=== PATIENT | male | born 1995 | race African-American/Black ===

== ENCOUNTER 2017-03-29 11:45 | Inpatient (IN) | payer SELFPAY ==
[2017-03-29] VITALS (14 sets, daily range): BP systolic 94–179; BP diastolic 54–106; PULSE 76–175; RESP 16–30; TEMP 98.4–99.5; O2SAT 96–100
[~2017-03-29] VITALS: Ht 185.4 cm; Wt 79.4 kg
--- NOTE | 2017-03-29 11:59 | PD ---
Physical Exam Time Seen by Provider: 11:57 Narrative 21 y/o male here with altered mental status, tremors for 2 days according to his mother. Vital signs reviewed. Seen at triage desk. Awaiting bed placement. Data Data Last Documented VS Vital Signs Date Time Temp Pulse Resp B/P Pulse Ox O2 Delivery O2 Flow Rate FiO2 03/29/17 11:47 98.4 114 18 154/89 100 MDM Medical Record Reviewed: Yes Supervised Visit with NAY: No Scripts No Active Prescriptions or Reported Meds Octavio Tapia Mar 29, 2017 11:59
[2017-03-29 12:51] LABS: AUTOMATED NEUTROPHIL # 6.4 TH/MM3 (1.8-7.7); BASOPHIL % 0.2 % (0.0-2.0); EOSINOPHIL # 0.1 TH/MM3 (0-0.4); EOSINOPHIL % 1.1 % (0.0-4.0); HEMATOCRIT 44.6 % (39.0-51.0); HEMO FLAGS DIFF FINAL; LYMPH % 23.2 % (9.0-44.0); LYMPHOCYTE # 2.2 TH/MM3 (1.0-4.8); MEAN CELL VOLUME 88.7 FL (80.0-100.0); MEAN CORPUSCULAR HEMOGLOBIN 30.4 PG (27.0-34.0); MEAN CORPUSCULAR HGB CONC 34.3 % (32.0-36.0); MONO % 6.9 % (0.0-8.0); NEUT % 68.6 % (16.0-70.0); PLATELET COUNT 239 TH/MM3 (150-450); RED BLOOD COUNT 5.03 MIL/MM3 (4.50-5.90); RED CELL DISTRIBUTION WIDTH 14.6 % (11.6-17.2); WHITE BLOOD COUNT 9.3 TH/MM3 (4.0-11.0)
[2017-03-29 13:15] LABS: AST (GOT) 18 U/L (15-37); BICARBONATE 26.2 MEQ/L (21.0-32.0); BLOOD UREA NITROGEN 15 MG/DL (7-18); GLOMERULAR FILTRATION RATE 122 ML/MIN (>89)
[2017-03-29] MEDS ORDERED: SODIUM CHLOR 0.9% 1000 ML INJ 1,000 ML IV SCH (13:22)
[2017-03-29] MEDS ORDERED: ZITHTAB PO (13:26)
--- NOTE | 2017-03-29 13:28 | PD ---
HPI Chief Complaint: Psychiatric Symptoms Time Seen by Provider: 13:24 Travel History International Travel<30 days: No Contact w/Intl Traveler<30days: No Traveled to known affect area: No History of Present Illness HPI Patient comes in with his mother complaining of altered mental status ongoing for approximately week. States that a week ago is a different ER if being treated for abdominal pain, headache, nausea, and vomiting was evaluated there having blood work and CAT scans done and sent home. Mother is uncertain what medication they were given but the patient has had similar reactions in the past after receiving Zofran as well as her if he received this or not. Mother states the patient was given a prescription for a Z-Mustapha for sinus infection. Patient was reevaluated in the same ER last night mother reports that they did not do anything and just sent him home. Reports patient is hallucinating and seeing things that aren't there, shaking, and not acting himself. Patient's only complaint is headache and frontal lobe without radiation and occasional dizziness. Denies any chest pain, shortness of breath, known fevers, abdominal pain, nausea, vomiting, diarrhea, or neck pain. PFSH Past Medical History Asthma: No Cancer: No Cardiovascular Problems: No Cerebrovascular Accident: No Diabetes: No Glaucoma: No Hepatitis: No Hiatal Hernia: No Hypertension: No Immune Disorder: No Respiratory: No Myocardial Infarction: No Thyroid Disease: No Past Surgical History Oral Surgery: Yes (DENTAL SX) Other Surgery: Yes Social History Alcohol Use: No Tobacco Use: Yes (BLACK AND MILDS) Substance Use: No Allergies-Medications (Allergen,Severity, Reaction): Coded Allergies: Morphine (Verified Allergy, Intermediate, Confusion, 03/29/17) Tramadol (Verified Allergy, Intermediate, Confusion, 03/29/17) Zofran (Verified Allergy, Mild, Twitching, 03/29/17) Reported Meds & Prescriptions Reported Meds & Active Scripts Active Reported Zithromax Z-Mustapha (Azithromycin) 250 Mg Dspk 250 Mg PO DIRECTED 500 MG (2 tabs) day 1, then 1 tab days 2-5. Review of Systems Except as stated in HPI: all other systems reviewed are Neg Physical Exam Narrative GENERAL: Well-developed, well nourished, in no acute distress, and non-ill appearing. SKIN: Focused skin assessment warm and dry. HEAD: Atraumatic. Normocephalic. EYES: Pupils equal and round. EOMI. No scleral icterus. No injection or drainage. ENT: No nasal bleeding or discharge. Mucous membranes pink and moist. NECK: Trachea midline. No JVD. Supple. No nuclear rigidity. Negative Kernig's and Brudzinski sign. CARDIOVASCULAR: Regular rate and rhythm. No murmur appreciated. RESPIRATORY: No accessory muscle use. No respiratory distress. Clear to auscultation. Breath sounds equal bilaterally. GASTROINTESTINAL: Abdomen soft, non-tender, nondistended, and no guarding. Hepatic and splenic margins not palpable. Normal bowel sounds 4. No pulsatile mass. MUSCULOSKELETAL: No obvious deformities. No clubbing. No cyanosis. No edema. Full range of motion. NEUROLOGICAL: Awake and alert. No obvious cranial nerve deficits. Motor grossly within normal limits. Normal speech. Occasional twitching of hands and eyelids. PSYCHIATRIC: Appropriate mood and affect; insight and judgment normal. Zones in and out. Data Data Last Documented VS Vital Signs Date Time Temp Pulse Resp B/P Pulse Ox O2 Delivery O2 Flow Rate FiO2 03/29/17 19:09 160 24 144/65 97 Room Air 03/29/17 11:47 98.4 Orders Electrocardiogram (03/29/17 12:01) Complete Blood Count With Diff (03/29/17 12:01) Comprehensive Metabolic Panel (03/29/17 12:01) Creatine Kinase (Cpk) (03/29/17 12:01) Drug Screen, Random Urine (03/29/17 12:01) Alcohol (Ethanol) (03/29/17 12:01) Ammonia (03/29/17 13:22) Thyroid Stimulating Hormone (03/29/17 13:22) Urinalysis - C+S If Indicated (03/29/17 13:22) Blood Glucose (03/29/17 13:22) Ecg Monitoring (03/29/17 13:22) Iv Access Insert/Monitor (03/29/17 13:22) Oximetry (03/29/17 13:22) Sodium Chloride 0.9% Flush (Ns Flush) (03/29/17 13:30) Sodium Chlor 0.9% 1000 Ml Inj (Ns 1000 M (03/29/17 13:22) CKMB (03/29/17 12:40) CKMB% (03/29/17 12:40) Lorazepam Inj (Ativan Inj) (03/29/17 16:15) Lorazepam Inj (Ativan Inj) (03/29/17 16:15) Diphenhydramine Inj (Benadryl Inj) (03/29/17 16:24) Haloperidol Inj (Haldol Inj) (03/29/17 16:25) Ob/Psych Drug Screen, Urine (03/29/17 16:35) Psych Screen (03/29/17 16:50) Physician Name Changes (03/29/17 ) Haloperidol Inj (Haldol Inj) (03/29/17 17:00) Diphenhydramine Inj (Benadryl Inj) (03/29/17 17:00) Lorazepam Inj (Ativan Inj) (03/29/17 17:00) Lorazepam Inj (Ativan Inj) (03/29/17 17:15) Lorazepam Inj (Ativan Inj) (03/29/17 18:00) Ct Brain W/O Iv Contrast(Rout) (03/29/17 ) Dexmedetomidine Inj (Precedex Inj) (03/29/17 18:30) Neurological Rass Scale Q30MX2,Q2HX4,Q4H (03/29/17 18:19) Restraints Non-Violent ZAFAR.Q3H (03/29/17 18:22) Ur Bath Salts (03/29/17 19:18) Ur Drug Screen W/Confirmation (03/29/17 19:18) Ur Heroin (03/29/17 19:18) Ur K2 Spice (03/29/17 19:18) Ur Methadone (03/29/17 19:18) Admit To Inpatient (03/29/17 ) Code Status (03/29/17 19:19) Vital Signs (Adult) ZAFAR.Q1H (03/29/17 19:19) Activity Bed Rest (03/29/17 19:19) Elevate Head Of Bed (03/29/17 19:19) Diet Regular Basic (03/30/17 Breakfast) Sodium Chlor 0.9% 1000 Ml Inj (Ns 1000 M (03/29/17 19:19) Sodium Chloride 0.9% Flush (Ns Flush) (03/29/17 19:30) Sodium Chloride 0.9% Flush (Ns Flush) (03/29/17 21:00) Acetaminophen (Tylenol) (03/29/17 19:30) Pantoprazole Inj (Protonix Inj) (03/30/17 09:00) Lorazepam Inj (Ativan Inj) (03/29/17 19:30) Albuterol Neb (Albuterol Neb) (03/29/17 19:30) Complete Blood Count With Diff (03/30/17 04:00) Comprehensive Metabolic Panel (03/30/17 04:00) Act Partial Throm Time (Ptt) (03/30/17 04:00) Prothrombin Time / Inr (Pt) (03/30/17 04:00) Magnesium (Mg) (03/30/17 04:00) Phosphorus (Po4) (03/30/17 04:00) Lactic Acid (03/30/17 04:00) Electrocardiogram (03/29/17 ) Resp Incentive Spirometry (03/29/17 ) Resp Oxygen Tony C Titrat 1-4 L (03/29/17 ) Technical Business Systems Analyst / Telemetry ZAFAR.Q8H (03/29/17 19:19) Scd Bilateral/Knee High ZAFAR.BID (03/29/17 19:19) ^ Initiate Protocol (03/29/17 19:19) Instruction (03/29/17 19:19) [facility] Nursing Information (03/29/17 19:30) Chlorhexidine 2% Cloth (Chlorhexidine 2% (03/30/17 04:00) Chlorhexidine 2% Cloth (Chlorhexidine 2% (03/29/17 19:30) Mrsa Pcr Surveillance (03/29/17 19:19) Docusate Sodium-Senna (Stephanie-Colace) (03/29/17 21:00) Magnesium Hydroxide Liq (Milk Of Magnesi (03/29/17 19:30) Sennosides (Senokot) (03/29/17 19:30) Bisacodyl Supp (Dulcolax Supp) (03/29/17 19:30) Lactulose Liq (Lactulose Liq) (03/29/17 19:30) Inpatient Certification (03/29/17 ) Labs Laboratory Tests Test 03/29/17 03/29/17 12:40 13:50 White Blood Count 9.3 TH/MM3 Red Blood Count 5.03 MIL/MM3 Hemoglobin 15.3 GM/DL Hematocrit 44.6 % Mean Corpuscular Volume 88.7 FL Mean Corpuscular Hemoglobin 30.4 PG Mean Corpuscular Hemoglobin 34.3 % Concent Red Cell Distribution Width 14.6 % Platelet Count 239 TH/MM3 Mean Platelet Volume 8.3 FL Neutrophils (%) (Auto) 68.6 % Lymphocytes (%) (Auto) 23.2 % Monocytes (%) (Auto) 6.9 % Eosinophils (%) (Auto) 1.1 % Basophils (%) (Auto) 0.2 % Neutrophils # (Auto) 6.4 TH/MM3 Lymphocytes # (Auto) 2.2 TH/MM3 Monocytes # (Auto) 0.6 TH/MM3 Eosinophils # (Auto) 0.1 TH/MM3 Basophils # (Auto) 0.0 TH/MM3 CBC Comment DIFF FINAL Differential Comment Sodium Level 137 MEQ/L Potassium Level 3.8 MEQ/L Chloride Level 102 MEQ/L Carbon Dioxide Level 26.2 MEQ/L Anion Gap 9 MEQ/L Blood Urea Nitrogen 15 MG/DL Creatinine 0.93 MG/DL Estimat Glomerular Filtration 122 ML/MIN Rate Random Glucose 94 MG/DL Calcium Level 9.8 MG/DL Total Bilirubin 1.1 MG/DL Aspartate Amino Transf 18 U/L (AST/SGOT) Alanine Aminotransferase 34 U/L (ALT/SGPT) Alkaline Phosphatase 55 U/L Total Creatine Kinase 396 U/L Creatine Kinase MB 2.2 NG/ML Creatine Kinase MB % 0.6 % Total Protein 8.3 GM/DL Albumin 5.0 GM/DL Ethyl Alcohol Level LESS THAN 3 MG/DL Urine Color YELLOW Urine Turbidity CLEAR Urine pH 6.0 Urine Specific [place] 1.039 Urine Protein 30 mg/dL Urine Glucose (UA) NEG mg/dL Urine Ketones 40 mg/dL Urine Occult Blood NEG Urine Nitrite NEG Urine Bilirubin NEG Urine Urobilinogen 2.0 MG/DL Urine Leukocyte Esterase NEG Urine RBC 1 /hpf Urine WBC 1 /hpf Urine Squamous Epithelial <1 /hpf Cells Urine Mucus MANY /lpf Microscopic Urinalysis Comment CATH-CULT NOT IND Ammonia 45 MCMOL/L Thyroid Stimulating Hormone 0.280 uIU/ML 3rd Gen [facility] Medical Decision Making Medical Screen Exam Complete: Yes Emergency Medical Condition: Yes Interpretation(s) EKG reviewed by Dr. Jacob shows sinus rhythm with a sinus arrhythmia with a ventricular rate of 82. No STEMI. Differential Diagnosis Encephalopathy, UTI, acute drug psychosis, electrolyte abnormality, thyroid disease, adverse reaction, other Narrative Course Patient seen and examined. IV was established. Patient was registered nurse cardiac telemetry. Patient was hydrated with IV fluids. Initial laboratory studies were ordered. We'll await laboratory results and reevaluate patient. The labs obtained and reviewed. Discussed patient with Dr. Jacob, who saw and evaluated the patient is concerned patient may be having mini seizures. Will Admit the patient for further evaluation. Discussed this with patient and family, who is agreeable for admission. 1615 patient having more symptoms of withdrawal and not so much seizure-like activity currently. Patient will be evaluated by psych will cancel the admission order. Patient was given Ativan, Haldol, and Benadryl. Patient continued to get more aggravated and have additional sedating medications needing to be ordered. Patient was then admitted then by Dr. Jacob. Please see her dictation for final diagnosis and disposition. Physician Communication Physician Communication [id number] Marin, who is agreeable to admit the patient. Jeancarlos Tomlinson Mar 29, 2017 13:28
[2017-03-29] MEDS ORDERED: SODIUM CHLORIDE 0.9% FLUSH 5 ML FLUSH IV FLUSH PRN (13:30)
[2017-03-29 13:37] LABS: ALKALINE PHOSPHATASE 55 U/L (45-117); ALT (GPT) 34 U/L (12-78); ANION GAP 9 MEQ/L (5-15); CHLORIDE 102 MEQ/L (98-107); CREATINE KINASE 396 U/L (39-308); POTASSIUM 3.8 MEQ/L (3.5-5.1); SODIUM (NA) 137 MEQ/L (136-145); TOTAL BILIRUBIN ADULT 1.1 MG/DL (0.2-1.0)
[2017-03-29 14:19] LABS: BLOOD, URINE NEG (NEG); GLUCOSE,URINE NEG (NEG); KETONE, URINE 40 mg/dL (NEG); MUCUS URINE MANY /lpf (OCC); NITRITE,URINE NEG (NEG); SQUAMOUS EPITHELIAL CELL URINE <1 /hpf (0-5); URINE COLOR YELLOW (YELLW/STRAW)
[2017-03-29 14:22] LABS: COMMENT (UR) CATH-CULT NOT IND; CULTURE IF INDICATED CATH CULTURE NOT IND
[2017-03-29 14:40] LABS: CKMB 2.2 NG/ML (0.5-3.6)
--- NOTE | 2017-03-29 16:08 | HHI.HP ---
HPI Service [facility] Hospitalists Primary Care Physician Dr. Cade Mccall Admission Diagnosis seizure-like activity, altered mental status Chief Complaint: AMS Travel History International Travel<30 Days: No Contact w/Intl Traveler <30 Da: No Traveled to Known Affected Are: No History of Present Illness Mr. Ball is a 21 y/o AAM without significant PMH. Pts mother is present at the bedside and provides the history. Pt was recently admitted to [facility] from -03/23/17 with nausea/vomiting and abdominal pain which had started just prior to going to the ED. At that time there were no concerning neurological symptoms. There were no reported fevers at that time. Pts mother reports that they checked his gallbladder but this was not found to be the issue. She states that the N/V and abd pain resolved but there was no specific diagnosis given. Pts mother reports that he was previously hospitalized 1 year ago for an appendectomy and at that time he was given Morphine, Tramadol and Zofran in the hospital and was sent home on Zofran and Tramadol and his mother reports that she felt had a reaction to Tramadol where he became confused with associated twitching that resolved with stopping the tramadol.. Pts mother reports that she noted during his most recent hospitalization that he had started having some twitching and agitation. After that discharge she noted that the symptoms seemed to be more pronounced and worsening. He has had twitching of the upper and lower extremities and confusion and hallucinating. She states that he has not been sleeping for the last 2 days. Pt went back to [facility] on 03/28/17 in the ED and was diagnosed with sinus infection and given a z pack. He took one dose of the Azithromycin this morning. His mother became concerned about the changes in his mentation, agitation and twitching and brought him to the ED at [facility] today. Pts mother states that the patient has been under a lot of stress lately. He does not have any history of psychiatric illness. No hx of seizure disorder. He has hx of marijuana use but no other illicit drug use as far as his mother is aware. During the examination the patient became increasingly agitated and uncooperative. He started hyperventilating and trying to get up off of the stretcher. Pt was given 2mg of Ativan in the ED but was still very agitated and seemed to be paranoid and hallucinating. He was very uncooperative with examination. Review of Systems ROS Limitations: Clinical Condition, Altered Mental Status, Uncooperative Past Family Social History Past Medical History None reported Past Surgical History Appendectomy Reported Medications Zithromax Z-Mustapha (Azithromycin) 250 Mg Dspk 250 Mg PO DIRECTED 500 MG (2 tabs) day 1, then 1 tab days 2-5. Allergies: Coded Allergies: Morphine (Verified Allergy, Intermediate, Confusion, 03/29/17) Tramadol (Verified Allergy, Intermediate, Confusion, 03/29/17) Zofran (Verified Allergy, Mild, Twitching, 03/29/17) Family History Noncontributory Social History No reported alcohol or tobacco use Pt with hx of marijuana use. Physical Exam Vital Signs Vital Signs Date Time Temp Pulse Resp B/P Pulse Ox O2 Delivery O2 Flow Rate FiO2 03/29/17 13:28 93 16 132/82 99 Room Air 03/29/17 11:47 98.4 114 18 154/89 100 Physical Exam GENERAL: This is a well-nourished, well-developed patient, in no apparent distress. SKIN: No rashes, ecchymoses or lesions. Cool and dry. HEAD: Atraumatic. Normocephalic. No temporal or scalp tenderness. EYES: Pupils equal round and reactive. Extraocular motions intact. No scleral icterus. No injection or drainage. ENT: Nose without bleeding, purulent drainage or septal hematoma. Throat without erythema, tonsillar hypertrophy or exudate. Uvula midline. Airway patent. NECK: Trachea midline. No JVD or lymphadenopathy. Supple, nontender, no meningeal signs. CARDIOVASCULAR: Regular rate and rhythm without murmurs, gallops, or rubs. RESPIRATORY: Clear to auscultation. Breath sounds equal bilaterally. No wheezes , rales, or rhonchi. GASTROINTESTINAL: Abdomen soft, non-tender, nondistended. No hepato-splenomegaly , or palpable masses. No guarding. MUSCULOSKELETAL: Extremities without clubbing, cyanosis, or edema. No joint tenderness, effusion, or edema noted. No calf tenderness. Negative Homans sign bilaterally. NEUROLOGICAL: Awake and alert. Cranial nerves II through XII intact. Motor and sensory grossly within normal limits. Five out of 5 muscle strength in all muscle groups. Normal speech. Laboratory Laboratory Tests Test 03/29/17 03/29/17 12:40 13:50 White Blood Count 9.3 Red Blood Count 5.03 Hemoglobin 15.3 Hematocrit 44.6 Mean Corpuscular Volume 88.7 Mean Corpuscular Hemoglobin 30.4 Mean Corpuscular Hemoglobin 34.3 Concent Red Cell Distribution Width 14.6 Platelet Count 239 Mean Platelet Volume 8.3 Neutrophils (%) (Auto) 68.6 Lymphocytes (%) (Auto) 23.2 Monocytes (%) (Auto) 6.9 Eosinophils (%) (Auto) 1.1 Basophils (%) (Auto) 0.2 Neutrophils # (Auto) 6.4 Lymphocytes # (Auto) 2.2 Monocytes # (Auto) 0.6 Eosinophils # (Auto) 0.1 Basophils # (Auto) 0.0 CBC Comment DIFF FINAL Differential Comment Sodium Level 137 Potassium Level 3.8 Chloride Level 102 Carbon Dioxide Level 26.2 Anion Gap 9 Blood Urea Nitrogen 15 Creatinine 0.93 Estimat Glomerular Filtration 122 Rate Random Glucose 94 Calcium Level 9.8 Total Bilirubin 1.1 Aspartate Amino Transf 18 (AST/SGOT) Alanine Aminotransferase 34 (ALT/SGPT) Alkaline Phosphatase 55 Total Creatine Kinase 396 Creatine Kinase MB 2.2 Creatine Kinase MB % 0.6 Total Protein 8.3 Albumin 5.0 Ethyl Alcohol Level LESS THAN 3 Urine Color YELLOW Urine Turbidity CLEAR Urine pH 6.0 Urine Specific [place] 1.039 Urine Protein 30 Urine Glucose (UA) NEG Urine Ketones 40 Urine Occult Blood NEG Urine Nitrite NEG Urine Bilirubin NEG Urine Urobilinogen 2.0 Urine Leukocyte Esterase NEG Urine RBC 1 Urine WBC 1 Urine Squamous Epithelial <1 Cells Urine Mucus MANY Microscopic Urinalysis Comment CATH-CULT NOT IND Ammonia 45 Thyroid Stimulating Hormone 0.280 3rd Gen Result Diagram: 03/29/17 1240 03/29/17 1240 Tangela Moreno Mar 29, 2017 16:08
[2017-03-29] MEDS ORDERED: LORazepam 2 MG/ML VIAL ONE (16:15)
[2017-03-29] MEDS: LORazepam 2 MG/ML VIAL IV PUSH ONE ×2 (16:15→17:25)
[2017-03-29] MEDS ORDERED: diphenhydrAMINE HCL 50 MG/ML VIAL ONE (16:24)
[2017-03-29] MEDS ORDERED: HALOPERIDOL LACTATE 5 MG/ML AMP ONE (16:25)
[2017-03-29] MEDS ORDERED: diphenhydrAMINE HCL 50 MG/ML VIAL IV PUSH ONE (17:00)
[2017-03-29] MEDS ORDERED: HALOPERIDOL LACTATE 5 MG/ML AMP IV PUSH ONE (17:00)
[2017-03-29] MEDS ORDERED: LORazepam 2 MG/ML VIAL IV PUSH ONE ×3 (17:00→18:00)
[2017-03-29] MEDS: DEXMEDETOMIDINE INJ 200 MCG in SODIUM CHLORIDE 0.9% INJ 50 ML IV SCH ×3 (18:39→22:26)
--- NOTE | 2017-03-29 19:21 | PD ---
HPI Chief Complaint: Psychiatric Symptoms Time Seen by Provider: 13:21 Travel History International Travel<30 days: No Contact w/Intl Traveler<30days: No Traveled to known affect area: No History of Present Illness HPI This is a 21-year-old male who presents to the emergency department with increasing altered mental status over the past week. His family reports that one week ago he was seen at [facility] with some headache nausea and vomiting and treated for sinus infection. Ever since then they feel like he's been not himself, acting bizarrely, intermittently agitated and combative and intermittently staring out into space. He has smoked marijuana in the past but they feel fairly confident that within the past week he's been with other people and they don't know that he used any drugs. The patient doesn't provide much history. PFSH Past Medical History Asthma: No Cancer: No Cardiovascular Problems: No Cerebrovascular Accident: No Diabetes: No Glaucoma: No Hepatitis: No Hiatal Hernia: No Hypertension: No Immune Disorder: No Respiratory: No Myocardial Infarction: No Thyroid Disease: No Tetanus Vaccination: > 5 Years Past Surgical History Appendectomy: Yes Gynecologic Surgery: Yes (cyst removed from right testicle 2010) Oral Surgery: Yes (DENTAL SX) Other Surgery: Yes Social History Alcohol Use: No Tobacco Use: No Substance Use: No Allergies-Medications (Allergen,Severity, Reaction): Coded Allergies: Morphine (Verified Allergy, Intermediate, Confusion, 03/29/17) Tramadol (Verified Allergy, Intermediate, Confusion, 03/29/17) Zofran (Verified Allergy, Mild, Twitching, 03/29/17) Reported Meds & Prescriptions Reported Meds & Active Scripts Active Reported Zithromax Z-Mustapha (Azithromycin) 250 Mg Dspk 250 Mg PO DIRECTED 500 MG (2 tabs) day 1, then 1 tab days 2-5. Review of Systems ROS Limitations: Altered Mental Status Physical Exam Narrative GENERAL:Well appearing, no acute distress SKIN: Focused skin assessment warm and dry. HEAD: Atraumatic. Normocephalic. EYES: Pupils equal and round. No injection or drainage. ENT: Moist mucous membranes NECK: Trachea midline. CARDIOVASCULAR: Tachycardic. No murmur appreciated. RESPIRATORY: Clear to auscultation. Breath sounds equal bilaterally. GASTROINTESTINAL: Abdomen soft, non-tender, nondistended. MUSCULOSKELETAL: No obvious deformities. NEUROLOGICAL: No obvious cranial nerve deficits. No dysarthria or aphasia. Moving all extremities. PSYCHIATRIC: Intermittently answers questions appropriately, then appears very paranoid and gets agitated, and appropriately smiling and grimacing Data Data Last Documented VS Vital Signs Date Time Temp Pulse Resp B/P Pulse Ox O2 Delivery O2 Flow Rate FiO2 03/29/17 13:28 93 16 132/82 99 Room Air 03/29/17 11:47 98.4 Orders Electrocardiogram (03/29/17 12:01) Complete Blood Count With Diff (03/29/17 12:01) Comprehensive Metabolic Panel (03/29/17 12:01) Creatine Kinase (Cpk) (03/29/17 12:01) Drug Screen, Random Urine (03/29/17 12:01) Alcohol (Ethanol) (03/29/17 12:01) Ammonia (03/29/17 13:22) Thyroid Stimulating Hormone (03/29/17 13:22) Urinalysis - C+S If Indicated (03/29/17 13:22) Blood Glucose (03/29/17 13:22) Ecg Monitoring (03/29/17 13:22) Iv Access Insert/Monitor (03/29/17 13:22) Oximetry (03/29/17 13:22) Sodium Chloride 0.9% Flush (Ns Flush) (03/29/17 13:30) Sodium Chlor 0.9% 1000 Ml Inj (Ns 1000 M (03/29/17 13:22) CKMB (03/29/17 12:40) CKMB% (03/29/17 12:40) Labs Laboratory Tests Test 03/29/17 03/29/17 12:40 13:50 White Blood Count 9.3 TH/MM3 Red Blood Count 5.03 MIL/MM3 Hemoglobin 15.3 GM/DL Hematocrit 44.6 % Mean Corpuscular Volume 88.7 FL Mean Corpuscular Hemoglobin 30.4 PG Mean Corpuscular Hemoglobin 34.3 % Concent Red Cell Distribution Width 14.6 % Platelet Count 239 TH/MM3 Mean Platelet Volume 8.3 FL Neutrophils (%) (Auto) 68.6 % Lymphocytes (%) (Auto) 23.2 % Monocytes (%) (Auto) 6.9 % Eosinophils (%) (Auto) 1.1 % Basophils (%) (Auto) 0.2 % Neutrophils # (Auto) 6.4 TH/MM3 Lymphocytes # (Auto) 2.2 TH/MM3 Monocytes # (Auto) 0.6 TH/MM3 Eosinophils # (Auto) 0.1 TH/MM3 Basophils # (Auto) 0.0 TH/MM3 CBC Comment DIFF FINAL Differential Comment Sodium Level 137 MEQ/L Potassium Level 3.8 MEQ/L Chloride Level 102 MEQ/L Carbon Dioxide Level 26.2 MEQ/L Anion Gap 9 MEQ/L Blood Urea Nitrogen 15 MG/DL Creatinine 0.93 MG/DL Estimat Glomerular Filtration 122 ML/MIN Rate Random Glucose 94 MG/DL Calcium Level 9.8 MG/DL Total Bilirubin 1.1 MG/DL Aspartate Amino Transf 18 U/L (AST/SGOT) Alanine Aminotransferase 34 U/L (ALT/SGPT) Alkaline Phosphatase 55 U/L Total Creatine Kinase 396 U/L Creatine Kinase MB 2.2 NG/ML Creatine Kinase MB % 0.6 % Total Protein 8.3 GM/DL Albumin 5.0 GM/DL Ethyl Alcohol Level LESS THAN 3 MG/DL Urine Color YELLOW Urine Turbidity CLEAR Urine pH 6.0 Urine Specific [place] 1.039 Urine Protein 30 mg/dL Urine Glucose (UA) NEG mg/dL Urine Ketones 40 mg/dL Urine Occult Blood NEG Urine Nitrite NEG Urine Bilirubin NEG Urine Urobilinogen 2.0 MG/DL Urine Leukocyte Esterase NEG Urine RBC 1 /hpf Urine WBC 1 /hpf Urine Squamous Epithelial <1 /hpf Cells Urine Mucus MANY /lpf Microscopic Urinalysis Comment CATH-CULT NOT IND Ammonia 45 MCMOL/L Thyroid Stimulating Hormone 0.280 uIU/ML 3rd Gen [facility] Medical Decision Making Medical Screen Exam Complete: Yes Emergency Medical Condition: Yes Interpretation(s) No leukocytosis Electrolytes are reassuring TSH is low Differential Diagnosis Seizure, substance intoxication, alcohol withdrawal, encephalitis, meningitis Narrative Course This is a 21-year-old male who presents with altered mental status. The patient initially was fairly calm and cooperative but has become increasingly agitated during his emergency department stay, becoming more tachycardic and trying to get out of bed area did he was placed on a monitor and an IV was established. When he became more agitated he was given a total of 5 mg of Ativan, Haldol and Benadryl. He continued to be agitated. Labs are reassuring. He was started on Precedex and will be admitted to the intensive care unit. My suspicion based on his exam is that he is intoxicated with synthetic cannabinoids. Certainly encephalitis continues to be on the differential although he has no signs of infection and organic psychiatric diseases on the differential. Critical Care Narrative Aggregate critical care time was 60 minutes. Time to perform other separately billable procedures was not included in the critical care time. My time did not include minutes spent treating any other patients simultaneously or on activities that did not directly contribute to the patient's treatment. The services I provided to this patient were to treat and/or prevent clinically significant deterioration that could result in: Disability, I provided critical care services requiring my management, as noted below: Chart data review, documentation time, medication orders and management, vital sign assessments/reviewing monitor data, ordering and reviewing lab tests, ordering and interpreting/reviewing x-rays and diagnostic studies, care of the patient and discussion of the patient with the admitting physicians. Physician Communication Physician Communication Discussed with Dr. Lomeli Diagnosis Primary Impression: Acute delirium Admitting Information Admitting Physician Requests: Admit Deysi Jacob MD Mar 29, 2017 19:21
[2017-03-29] MEDS ORDERED: SENNOSIDES 8.6 MG TAB PO PRN (19:30)
[2017-03-29] MEDS ORDERED: SODIUM CHLORIDE 0.9% FLUSH 10 ML FLUSH IV FLUSH PRN (19:30)
[2017-03-29] MEDS ORDERED: ACETAMINOPHEN 325 MG TAB PO PRN (19:30)
[2017-03-29] MEDS ORDERED: MAGNESIUM HYDROXIDE SUSP 30 ML CUP PO PRN (19:30)
[2017-03-29] MEDS ORDERED: RESP: ALBUTEROL 2.5 MG/3 ML NEB (PRN) INH (19:30)
[2017-03-29] MEDS ORDERED: BISACODYL 10 MG SUPP RECTAL PRN (19:30)
[2017-03-29] MEDS ORDERED: LORazepam 2 MG/ML VIAL IV PRN (19:30)
[2017-03-29] MEDS ORDERED: PROCHLORPERAZINE INJ 10 MG/2 ML VIAL IV PUSH PRN (19:30)
[2017-03-29] MEDS ORDERED: CHLORHEXIDINE GLUCONATE 2 % 1 PACK (2 CLOTHS) TOP PRN (19:30)
[2017-03-29] MEDS ORDERED: LACTULOSE SYRUP 20 GM/30 ML CUP PO PRN (19:30)
[2017-03-29] MEDS ORDERED: MISCELLANEOUS NURSING INFORMATION XX SCH (19:30)
[2017-03-29 19:52] LABS: AMPHETAMINE, URINE NEG (NEG); BARBITURATES, URINE NEG (NEG); COCAINE, URINE NEG (NEG)
--- NOTE | 2017-03-29 19:52 | PD.CONS ---
HPI Service Critical Care Medicine Consult Requested By Dr. Baldwin Reason for Consult Altered mental status Primary Care Physician No Primary Care Physician History of Present Illness This is a 21-year-old AA male. Date of admission 03/29/2017. Date of consultation 03/29/2017. Past medical history includes recent hospitalization at [facility] from 03/21/17-03/23/17 with nausea/vomiting and abdominal pain. At that time there were no concerning neurological symptoms. Negative gallbladder workup including ultrasound and HIDA scan. Symptoms have resolved and patient was sent home. During the hospital sedation the patient is currently more confused. Unknown what medications patient received at that facility. . Pts mother reports that she noted during his most recent hospitalization that he had started having some twitching and agitation. After that discharge she noted that the symptoms seemed to be more pronounced and worsening. He has had twitching of the upper and lower extremities and confusion and hallucinating. He has not slept in 2 days. He went back to [facility] on 03/28/17 was diagnosed with a sinus infection and given a azithromycin dosage.. He took one dose of the Azithromycin this morning Pts mother who is a RN states that the patient has been under a lot of stress lately. He has hx of marijuana use but no other illicit drug use as far as his mother is aware. During the examination the patient became increasingly agitated and uncooperative. He was given 5 mg Haldol, 5 mg Ativan and 50 mg of Benadryl became worsening mentation, agitation becoming increasing tachycardic. Precedex drip was initiated. Head CT and toxicology all pending at the present time. Patient denies any neck pain, denies headache. No obvious meningeal/ signs present time Review of Systems ROS Limitations: Altered Mental Status Past Family Social History Allergies: Coded Allergies: Morphine (Verified Allergy, Intermediate, Confusion, 03/29/17) Tramadol (Verified Allergy, Intermediate, Confusion, 03/29/17) Zofran (Verified Allergy, Mild, Twitching, 03/29/17) Past Medical History None Past Surgical History Appendectomy Dental surgery Cyst removed from right testes Reported Medications Azithromycin 250 mg by mouth daily 3 dosages Active Ordered Medications Reviewed in EMR Family History Mother's is RN. She has no medical problems. Social History Mother states patient occasionally smokes marijuana occasional tobacco use. Denies alcohol use. Physical Exam Vital Signs Vital Signs Date Time Temp Pulse Resp B/P Pulse Ox O2 Delivery O2 Flow Rate FiO2 03/29/17 19:35 26 137/78 98 Room Air 03/29/17 19:09 160 24 144/65 97 Room Air 03/29/17 17:00 127 24 120/96 98 Room Air 03/29/17 13:28 93 16 132/82 99 Room Air 03/29/17 11:47 98.4 114 18 154/89 100 Physical Exam GENERAL: 21-year-old AA male, resting in bed in leather restraints SKIN: Warm and wet. No rash. Multiple tattoos bilateral upper extremities. HEAD: Atraumatic. Normocephalic. EYES: Pupils equal and round about 2 mm bilaterally and reactive. No scleral icterus. No injection or drainage. ENT: No nasal bleeding or discharge. Mucous membranes pink and moist. NECK: Trachea midline. No JVD. CARDIOVASCULAR: Cardiac, RRR. S1, S2 no murmur. RESPIRATORY:. Clear to auscultation. Breath sounds equal bilaterally. GASTROINTESTINAL: Abdomen soft, non-tender, nondistended. Active bowel sounds appreciated MUSCULOSKELETAL: Extremities without noted peripheral edema. No obvious deformities. NEUROLOGICAL: Awake and alert to person only. No obvious cranial nerve deficits. Motor grossly within normal limits. Five out of 5 muscle strength in the arms and legs. Nonsensical speech. Laboratory Laboratory Tests Test 03/29/17 03/29/17 12:40 13:50 White Blood Count 9.3 Red Blood Count 5.03 Hemoglobin 15.3 Hematocrit 44.6 Mean Corpuscular Volume 88.7 Mean Corpuscular Hemoglobin 30.4 Mean Corpuscular Hemoglobin 34.3 Concent Red Cell Distribution Width 14.6 Platelet Count 239 Mean Platelet Volume 8.3 Neutrophils (%) (Auto) 68.6 Lymphocytes (%) (Auto) 23.2 Monocytes (%) (Auto) 6.9 Eosinophils (%) (Auto) 1.1 Basophils (%) (Auto) 0.2 Neutrophils # (Auto) 6.4 Lymphocytes # (Auto) 2.2 Monocytes # (Auto) 0.6 Eosinophils # (Auto) 0.1 Basophils # (Auto) 0.0 CBC Comment DIFF FINAL Differential Comment Sodium Level 137 Potassium Level 3.8 Chloride Level 102 Carbon Dioxide Level 26.2 Anion Gap 9 Blood Urea Nitrogen 15 Creatinine 0.93 Estimat Glomerular Filtration 122 Rate Random Glucose 94 Calcium Level 9.8 Total Bilirubin 1.1 Aspartate Amino Transf 18 (AST/SGOT) Alanine Aminotransferase 34 (ALT/SGPT) Alkaline Phosphatase 55 Total Creatine Kinase 396 Creatine Kinase MB 2.2 Creatine Kinase MB % 0.6 Total Protein 8.3 Albumin 5.0 Ethyl Alcohol Level LESS THAN 3 Urine Color YELLOW Urine Turbidity CLEAR Urine pH 6.0 Urine Specific [place] 1.039 Urine Protein 30 Urine Glucose (UA) NEG Urine Ketones 40 Urine Occult Blood NEG Urine Nitrite NEG Urine Bilirubin NEG Urine Urobilinogen 2.0 Urine Leukocyte Esterase NEG Urine RBC 1 Urine WBC 1 Urine Squamous Epithelial <1 Cells Urine Mucus MANY Microscopic Urinalysis Comment CATH-CULT NOT IND Ammonia 45 Thyroid Stimulating Hormone 0.280 3rd Gen Result Diagram: 03/29/17 1240 03/29/17 1240 Assessment and Plan Assessment and Plan Neuro/Psych: Acute delirium THC use Urine drug screen/urine K2/vas also consider all pending CT brain pending Received Benadryl, Haldol and Ativan in ED. Possible. Os reaction. Trial Precedex drip titrate to maintain RASS of 0 Limit sedatives Consider lumbar puncture if no improvement CV: Sinus tachycardia Secondary to agitation. Currently normal saline at 84 cc an hour. Resp: Nasal cannula to maintain saturations greater than or equal to 92% Incentive spirometry while awake Check ABG with acute delirium when able GI: Elevated ammonia level Patient recently hospitalized at [facility]. Self-reported negative gallbladder ultrasound/HIDA scan. Protonix for GI prophylaxis Bowel regimen initiated Initiate lactulose 30 mg by mouth twice a day. Recheck ammonia level in a.m. : Beavers catheter currently not indicated Endo: Low TSH Check free T3/T4. Sliding-scale insisted to maintain euglycemia Renal: Creatinine currently within normal limits Accurate I's and O's Monitor urine output. Recheck BMP in a.m. Heme: CBC within normal limits. Follow-up on coags ID: Sinusitis? Follow-up on CT brain. Blood cultures 2, sputum and urine. MSK: PT evaluate and treat FEN: Replace electrolytes as clinically indicated Access - Utilize peripheral IV. Central line if indicated Prophylaxis - GI - Protonix - DVT - SCDs/weight brain CT prior to pharmacological prophylaxis. Critical Care: The total critical care time was 35 minutes. Time to perform other separately billable procedures was not included in the critical care time. Code Status Full code Discussed Condition With Patient's mother Attila Broussard. Dr. Jacob/ED physician. Care plan discussed all questions answered. Sean Lomeli MD Mar 29, 2017 19:52
[2017-03-29] MEDS: LACTULOSE SYRUP 20 GM/30 ML CUP PO SCH (21:00)
[2017-03-29] MEDS: DOCUSATE SODIUM 50 MG/SENNA 8.6 MG TAB PO SCH (21:00)
[2017-03-29] MEDS: SODIUM CHLOR 0.9% 1000 ML INJ 1,000 ML IV SCH (21:30)
[2017-03-29] MEDS: SODIUM CHLORIDE 0.9% FLUSH 10 ML FLUSH IV FLUSH SCH (21:30)
--- NOTE | 2017-03-29 21:37 | RADRPT ---
EXAM DATE/TIME: 03/29/2017 21:08 [place] COMPARISON: No previous studies available for comparison. INDICATIONS : Altered mental status. RADIATION DOSE: 53.64 CTDIvol (mGy) MEDICAL HISTORY : Non-responsive. SURGICAL HISTORY : Non-responsive. ENCOUNTER: Initial ACUITY: 1 day PAIN SCALE: Non-responsive LOCATION: cranial TECHNIQUE: Multiple contiguous axial images were obtained of the head. Using automated exposure control and adj ustment of the mA and/or kV according to patient size, radiation dose was kept as low as reasonably a chievable to obtain optimal diagnostic quality images. DICOM format image data is available electro nically for review and comparison. FINDINGS: CEREBRUM: The ventricles are normal for age. No evidence of midline shift, mass lesion, hemorrhage or acute in farction. No extra-axial fluid collections are seen. POSTERIOR FOSSA: The cerebellum and brainstem are intact. The 4th ventricle is midline. The cerebellopontine angle i s unremarkable. EXTRACRANIAL: The visualized portion of the orbits is intact. SKULL: The calvaria is intact. No evidence of skull fracture. CONCLUSION: 1. No acute intracranial abnormalities. Mucosal thickening in the paranasal sinuses. Jose M Atkins MD on March 29, 2017 at 21:33 Board Certified Radiologist. This report was verified electronically.
[2017-03-29] MEDS ORDERED: MULTIVITAMIN INJ 10 ML, THIAMINE INJ 100 MG, FOLIC ACID INJ 1 MG in SODIUM CHLORID 0.9%... IV ONE (23:00)
[2017-03-29] MEDS: CHLORHEXIDINE GLUCONATE 2 % 1 PACK (2 CLOTHS) TOP SCH (23:37)
[2017-03-30] VITALS (24 sets, daily range): BP systolic 92–130; BP diastolic 52–83; PULSE 69–112; RESP 13–47; TEMP 98.6–98.9; O2SAT 96–100
[2017-03-30] MEDS: DEXMEDETOMIDINE INJ 200 MCG in SODIUM CHLORIDE 0.9% INJ 50 ML IV SCH (04:08)
[2017-03-30 04:19] LABS: AUTOMATED NEUTROPHIL # 7.4 TH/MM3 (1.8-7.7); BASOPHIL % 0.4 % (0.0-2.0); EOSINOPHIL # 0.2 TH/MM3 (0-0.4); EOSINOPHIL % 1.5 % (0.0-4.0); HEMO FLAGS DIFF FINAL; LYMPH % 19.6 % (9.0-44.0); MEAN CELL VOLUME 88.7 FL (80.0-100.0); MEAN CORPUSCULAR HEMOGLOBIN 30.4 PG (27.0-34.0); MEAN CORPUSCULAR HGB CONC 34.3 % (32.0-36.0); MONO % 7.3 % (0.0-8.0); NEUT % 71.2 % (16.0-70.0); PLATELET COUNT 197 TH/MM3 (150-450); RED BLOOD COUNT 4.51 MIL/MM3 (4.50-5.90); RED CELL DISTRIBUTION WIDTH 14.2 % (11.6-17.2); WHITE BLOOD COUNT 10.3 TH/MM3 (4.0-11.0)
[2017-03-30 04:29] LABS: APTT (PATIENT) 24.7 SEC (24.3-30.1); INTERNATIONAL NORMALIZED RATIO 1.1 RATIO; PROTHROMBIN TIME - PATIENT 12.7 SEC (9.8-11.6)
[2017-03-30 05:17] LABS: ALKALINE PHOSPHATASE 46 U/L (45-117); ALT (GPT) 28 U/L (12-78); AMYLASE 70 U/L (25-115); ANION GAP 9 MEQ/L (5-15); AST (GOT) 25 U/L (15-37); BLOOD UREA NITROGEN 16 MG/DL (7-18); CHLORIDE 108 MEQ/L (98-107); FREE T3 3.52 PG/ML (2.18-3.98); FREE T4 1.58 NG/DL (0.76-1.46); GLOMERULAR FILTRATION RATE 147 ML/MIN (>89); POTASSIUM 4.2 MEQ/L (3.5-5.1); SODIUM (NA) 142 MEQ/L (136-145); TOTAL BILIRUBIN ADULT 1.2 MG/DL (0.2-1.0)
[2017-03-30] MEDS: SODIUM CHLOR 0.9% 1000 ML INJ 1,000 ML IV SCH ×2 (07:14→19:09)
--- NOTE | 2017-03-30 08:22 | EKG ---
Date Performed: 03/29/2017 Time Performed: 22:33:35 PTAGE: 21 years EKG: Sinus rhythm POSSIBLE RIGHT VENTRICULAR CONDUCTION DELAY VOLTAGE CRITERIA FOR LVH ABNORMAL ECG PREVIOUS TRACING : 03/29/2017 12.25 DOCTOR: Alexander Enriquez Interpretating Date/Time 03/30/2017 08:21:00
--- NOTE | 2017-03-30 08:37 | EKG ---
Date Performed: 03/29/2017 Time Performed: 12:25:44 PTAGE: 21 years EKG: Sinus rhythm WITH SINUS ARRHYTHMIA POSSIBLE RIGHT VENTRICULAR CONDUCTION DELAY ST ELEVATION, PROBABLY EARLY REPOL ARIZATION BORDERLINE ECG NO PREVIOUS TRACING DOCTOR: Alexander Enriquez Interpretating Date/Time 03/30/2017 08:31:44
[2017-03-30] MEDS: SODIUM CHLORIDE 0.9% FLUSH 10 ML FLUSH IV FLUSH SCH ×2 (08:42→19:53)
[2017-03-30] MEDS: LACTULOSE SYRUP 20 GM/30 ML CUP PO SCH ×2 (08:42→19:52)
[2017-03-30] MEDS: DOCUSATE SODIUM 50 MG/SENNA 8.6 MG TAB PO SCH ×2 (08:42→19:52)
[2017-03-30] MEDS: PANTOPRAZOLE SODIUM 40 MG VIAL IV SCH (08:42)
[2017-03-30] MEDS: MULTIVITAMIN INJ 10 ML, THIAMINE INJ 100 MG, FOLIC ACID INJ 1 MG in SODIUM CHLORID 0.9%... IV SCH (09:32)
[2017-03-30 09:51] LABS: RAPID PLASMA REAGIN SCREEN NON-REACTIVE (NON-REACTVE)
--- NOTE | 2017-03-30 11:13 | HHI.CCPN ---
Subjective Remarks/Hospital Course This is a 21-year-old AA male. Date of admission 03/29/2017. Date of consultation 03/29/2017. Past medical history includes recent hospitalization at [facility] from 03/21/17-03/23/17 with nausea/vomiting and abdominal pain. At that time there were no concerning neurological symptoms. Negative gallbladder workup including ultrasound and HIDA scan. Symptoms have resolved and patient was sent home. During the hospital sedation the patient is currently more confused. Unknown what medications patient received at that facility. . Pts mother reports that she noted during his most recent hospitalization that he had started having some twitching and agitation. After that discharge she noted that the symptoms seemed to be more pronounced and worsening. He has had twitching of the upper and lower extremities and confusion and hallucinating. He has not slept in 2 days. He went back to [facility] on 03/28/17 was diagnosed with a sinus infection and given a azithromycin dosage.. He took one dose of the Azithromycin this morning Pts mother who is a RN states that the patient has been under a lot of stress lately. He has hx of marijuana use but no other illicit drug use as far as his mother is aware. During the examination the patient became increasingly agitated and uncooperative. He was given 5 mg Haldol, 5 mg Ativan and 50 mg of Benadryl became worsening mentation, agitation becoming increasing tachycardic. Precedex drip was initiated. Head CT and toxicology all pending at the present time. Patient denies any neck pain, denies headache. No obvious meningeal/ signs present time. Subjective: 03/30: Episodes of tachycardia continued, patient still has noted tremulous hand movements. The patient reports over the last few months, increasing headaches. Patient currently alert and oriented, tolerating a diet. Objective Vital Signs Date Time Temp Pulse Resp B/P Pulse Ox O2 Delivery O2 Flow Rate FiO2 03/30/17 10:00 112 36 97 03/30/17 09:00 112/71 03/30/17 04:00 98.8 03/29/17 20:50 Nasal Cannula 03/29/17 20:46 4 03/29/17 19:43 21 Intake and Output 03/29/17 03/29/17 03/29/17 07:59 15:59 23:59 Intake Total 105 ml Output Total 0 ml Balance 105 ml Result Diagram: 03/30/1740603/30/17406 Objective Remarks GENERAL: 21-year-old AA male, resting in bed in alert and oriented 3 conversant appropriately SKIN: Warm and wet. No rash. Multiple tattoos bilateral upper extremities. HEAD: Atraumatic. Normocephalic. EYES: Pupils equal and round about 2 mm bilaterally and reactive. No scleral icterus. No injection or drainage. ENT: No nasal bleeding or discharge. Mucous membranes pink and moist. NECK: Trachea midline. No JVD. CARDIOVASCULAR: Cardiac, RRR. S1, S2 no murmur. RESPIRATORY:. Clear to auscultation. Breath sounds equal bilaterally. GASTROINTESTINAL: Abdomen soft, non-tender, nondistended. Active bowel sounds appreciated MUSCULOSKELETAL: Extremities without noted peripheral edema. No obvious deformities. NEUROLOGICAL: Awake and alert to person only. No obvious cranial nerve deficits. Motor grossly within normal limits. 5/5 muscle strength in the arms and legs. Normal speech. Tremulous hand movements noted. A/P Assessment and Plan Neuro/Psych: Acute delirium THC use Tremors Urine drug screen/urine K2/vas also consider all pending CT brain -no acute abnormality Received Benadryl, Haldol and Ativan in ED 03/29. Possible. Os reaction. Discontinue Precedex drip Limit sedatives Consider lumbar puncture if no improvement Findings tremulous movementsconsult neurology appreciate recommendations Obtain MRI Obtain EEG CV: Persistent Sinus tachycardia Obtain random cortisol ACTH stimulation test Consider 24 Urine metanephrines after MRI- Concern for Pheochromocytoma Currently normal saline at 84 cc an hour. Resp: Nasal cannula to maintain saturations greater than or equal to 92% Incentive spirometry while awake GI: Elevated ammonia level Patient recently hospitalized at [facility]. Self-reported negative gallbladder ultrasound/HIDA scan. Protonix for GI prophylaxis Bowel regimen initiated Initiate lactulose 30 mg by mouth twice a day. 03/30 ammonia level 28 : Beavers catheter currently not indicated Endo: Low TSH Check free T3/T4- WNL Sliding-scale Insulin to maintain euglycemia Obtain Aldosterone level Renal: Creatinine currently within normal limits Accurate I's and O's Monitor urine output. Monitor BMP Heme: CBC within normal limits. Follow-up on coags ID: Sinusitis? Follow-up on CT brain. Blood cultures 2, sputum and urine- results pending MSK: PT evaluate and treat FEN: Replace electrolytes as clinically indicated Access - Utilize peripheral IV. Central line if indicated Prophylaxis - GI - Protonix - DVT - SCDs/weight brain CT prior to pharmacological prophylaxis. Critical Care: Level 3 Dispo: Discussed with patient's parents updated on the medical status. Patient's mentation currently improved but noted fine tremulous movements,and tachycardia. Will continue to monitor. Physician Rachael Maloney MD Mar 30, 2017 11:13
[2017-03-30] MEDS: CHLORHEXIDINE GLUCONATE 2 % 1 PACK (2 CLOTHS) TOP SCH (19:53)
[2017-03-30] MEDS ORDERED: COSYNTROPIN 0.25 MG VIAL IV PUSH ONE (20:00)
--- NOTE | 2017-03-30 22:02 | MG ---
cc: KALEB MENDOZA M.D. Lab No: Date: 03/30/2017 Age: Sex: M Race: An EEG was obtained on this 21-year-old patient with history of altered mental status and trembling. DESCRIPTION The patient is described as awake during the study. There is low amplitude beta activity diffusely. Some alpha rhythms are seen intermixed in the central and posterior head regions. There is awake and asleep. Photic stimulation showed some driving response bilaterally. Artifact is noted intermittently. Hyperventilation showed no change. INTERPRETATION Normal awake and asleep EEG. MD ELIANA Thornton/EDWIN /9:27 PM /9:55 PM
[2017-03-31] VITALS (13 sets, daily range): BP systolic 110–135; BP diastolic 61–75; PULSE 71–102; RESP 20–63; TEMP 97.4–99.1; O2SAT 95–100
[2017-03-31] MEDS: SODIUM CHLOR 0.9% 1000 ML INJ 1,000 ML IV SCH ×2 (04:51→22:00)
--- NOTE | 2017-03-31 07:40 | MB ---
cc: JEFERSON CARMONA MD DATE OF CONSULTATION 03/30/17 REASON FOR CONSULTATION "Possible seizure activity noted, fine tremulous hand movements." HISTORY OF PRESENT ILLNESS Mr. Fox is a 21-year-old -Irish male with past medical history with that includes recent hospitalization at [facility] because of abdominal pain, nausea, vomiting. The patient was reported by the mother had a reaction to tramadol and Zofran last year when he had an appendectomy done with associated twitching that resolved with stopping of the tramadol. This is per review of medical records and as per mother's she stated that he had similar twitching and agitation. He was noted to have had twitching of the upper and lower extremities, confusion and hallucinations. He was combative. No history of psychiatric illness, head injury, seizures, febrile seizures. His brother though has history of two seizures episodes. REVIEW OF SYSTEMS A 12-point review of systems is negative except for what is stated in the HPI. PAST MEDICAL HISTORY Noncontributory. PAST SURGICAL HISTORY Appendectomy. MEDICATIONS Zithromax. ALLERGIES MORPHINE, TRAMADOL, ZOFRAN. FAMILY HISTORY Noncontributory. SOCIAL HISTORY Denies alcohol or tobacco use. History of marijuana is positive. PHYSICAL EXAMINATION GENERAL: Awake, alert, good historian, not in acute distress HEENT: Atraumatic, normocephalic. Intact vision, intact hearing. NECK: Trachea in the midline. Supple. No signs of meningeal irritation. CARDIOVASCULAR: Regular rate and rhythm. RESPIRATORY: Clear to auscultation. No wheezes. GASTROINTESTINAL: Soft, nontender. MUSCULOSKELETAL: Extremities without clubbing, cyanosis or edema. NEUROLOGICAL: Awake, alert, oriented to time, person and place. No dysarthria. No dysphasia. Cranial nerves II-XII are grossly intact. Motor system examination 5/5, bilateral symmetrical upper and lower extremities. Mild subtle fine tremor in both hands. No abnormal tone. Reflexes 2+ bilateral symmetrical. Plantars are bilaterally downgoing. Sensation is intact bilateral symmetrical. Cerebellar signs are normal. No ataxia. DIAGNOSTIC STUDIES LABORATORY DATA WBC 10.3, hemoglobin 13.7, sodium 142, potassium 4.2, chloride 108, anion gap 9, BUN 16, creatinine 0.79, lactic acid 0.7, magnesium 2, total bilirubin 1.2. AST, ALT are normal. Ammonia 37. T4 is elevated at 1.58. TSH is normal. UDS is positive for cannabinoids. DIAGNOSTIC IMAGING - Head CT scan without contrast revealed no acute intracranial abnormality. DIAGNOSTIC IMPRESSION 1. Encephalopathy. Possibly related to metabolic; less likely seizures or infectious etiology. Neurologic examination is nonfocal. No clinical signs of meningeal irritation with normal white blood cells. 2. Hyperammonemia PLAN 1. Neuro checks q. one hourly. 2. EEG. 3. Continue supportive medical therapy. 4. DVT prophylaxis. 5. MRI brain. Thank you for the opportunity to participate in the care of your patient. Jeferson Carmona MD RGO/EO /4:03 PM /7:29 AM [email or web address]
[2017-03-31] MEDS: DOCUSATE SODIUM 50 MG/SENNA 8.6 MG TAB PO SCH ×2 (09:00→22:01)
[2017-03-31] MEDS: LACTULOSE SYRUP 20 GM/30 ML CUP PO SCH ×2 (09:00→22:00)
[2017-03-31] MEDS: PANTOPRAZOLE SODIUM 40 MG VIAL IV SCH (09:18)
[2017-03-31] MEDS: SODIUM CHLORIDE 0.9% FLUSH 10 ML FLUSH IV FLUSH SCH ×2 (09:18→22:00)
[2017-03-31] MEDS: MULTIVITAMIN INJ 10 ML, THIAMINE INJ 100 MG, FOLIC ACID INJ 1 MG in SODIUM CHLORID 0.9%... IV SCH (09:18)
--- NOTE | 2017-03-31 11:53 | HHI.CCPN ---
Subjective Remarks/Hospital Course This is a 21-year-old AA male. Date of admission 03/29/2017. Date of consultation 03/29/2017. Past medical history includes recent hospitalization at [facility] from 03/21/17-03/23/17 with nausea/vomiting and abdominal pain. At that time there were no concerning neurological symptoms. Negative gallbladder workup including ultrasound and HIDA scan. Symptoms have resolved and patient was sent home. During the hospital sedation the patient is currently more confused. Unknown what medications patient received at that facility. . Pts mother reports that she noted during his most recent hospitalization that he had started having some twitching and agitation. After that discharge she noted that the symptoms seemed to be more pronounced and worsening. He has had twitching of the upper and lower extremities and confusion and hallucinating. He has not slept in 2 days. He went back to [facility] on 03/28/17 was diagnosed with a sinus infection and given a azithromycin dosage.. He took one dose of the Azithromycin this morning Pts mother who is a RN states that the patient has been under a lot of stress lately. He has hx of marijuana use but no other illicit drug use as far as his mother is aware. During the examination the patient became increasingly agitated and uncooperative. He was given 5 mg Haldol, 5 mg Ativan and 50 mg of Benadryl became worsening mentation, agitation becoming increasing tachycardic. Precedex drip was initiated. Head CT and toxicology all pending at the present time. Patient denies any neck pain, denies headache. No obvious meningeal/ signs present time. 03/30: Episodes of tachycardia continued, patient still has noted tremulous hand movements. The patient reports over the last few months, increasing headaches. Patient currently alert and oriented, tolerating a diet. Subjective: 03/31: Currently afebrile. Mentation much improved. Much less tremulous. No longer tachycardic. MRI brain pending still Objective Vital Signs Date Time Temp Pulse Resp B/P Pulse Ox O2 Delivery O2 Flow Rate FiO2 03/31/17 10:22 98 03/31/17 10:00 87 03/31/17 08:00 98.2 63 110/66 03/30/17 19:28 21 03/29/17 20:50 Nasal Cannula 03/29/17 20:46 4 Intake and Output 03/30/17 03/30/17 03/30/17 07:59 15:59 23:59 Intake Total 1472 ml 1102 ml Output Total 600 ml 600 ml Balance 872 ml 502 ml Result Diagram: 03/30/17 0407 03/30/17 0407 Imaging Last Impressions Head CT 03/29/17 0000 Signed Impressions: Service Date/Time: Wednesday, March 29, 2017 21:08 - CONCLUSION: 1. No acute intracranial abnormalities. Mucosal thickening in the paranasal sinuses. Jose M Atkins MD Objective Remarks GENERAL: 21-year-old AA male, resting in bed in alert and oriented 3 conversant appropriately SKIN: Warm and wet. No rash. Multiple tattoos bilateral upper extremities. HEAD: Atraumatic. Normocephalic. EYES: Pupils equal and round about 2 mm bilaterally and reactive. No scleral icterus. No injection or drainage. ENT: No nasal bleeding or discharge. Mucous membranes pink and moist. NECK: Trachea midline. No JVD. CARDIOVASCULAR: RRR S1, S2 no murmur. RESPIRATORY:. Clear to auscultation. Breath sounds equal bilaterally. GASTROINTESTINAL: Abdomen soft, non-tender, nondistended. Active bowel sounds appreciated MUSCULOSKELETAL: Extremities without noted peripheral edema. No obvious deformities. NEUROLOGICAL: Awake and alert to person place and time. No obvious cranial nerve deficits. Motor grossly within normal limits. 5/5 muscle strength in the arms and legs. Normal speech. Much less Tremulous hand movements noted. A/P Assessment and Plan Neuro/Psych: Acute delirium THC use Tremors Urine drug screen/urine revealed THC only CT brain -no acute abnormality Received Benadryl, Haldol and Ativan in ED 03/29. Possible. Paradoxical reaction. Findings tremulous movementsconsult neurology appreciate recommendations Obtain MRI brain currently pending Obtain EEG 03/30 normal CV: Normal sinus rhythm Currently normal saline at 84 cc an hour. Resp: Nasal cannula to maintain saturations greater than or equal to 92% Incentive spirometry while awake GI: Elevated ammonia level Patient recently hospitalized at [facility]. Self-reported negative gallbladder ultrasound/HIDA scan. Protonix for GI prophylaxis Bowel regimen initiated Initiate lactulose 30 mg by mouth twice a day. 03/30 ammonia level 37 : Beavers catheter currently not indicated Endo: Low TSH Check free T3/T4- WNL Sliding-scale Insulin to maintain euglycemia Obtain Aldosterone level ACTH stimulation test 24 Urine metanephrines after MRI-test written for by farmworker [employer] for Pheochromocytoma Renal: Creatinine currently within normal limits Accurate I's and O's Monitor urine output. Monitor BMP Heme: CBC within normal limits. Follow-up on coags ID: Sinusitis? Follow-up on CT brain. Blood cultures 2, sputum and urine- results pending MSK: PT evaluate and treat FEN: Replace electrolytes as clinically indicated Access - Utilize peripheral IV. Central line if indicated Prophylaxis - GI - Protonix - DVT - SCDs/weight brain CT prior to pharmacological prophylaxis. Critical Care: Level 2 Assign care to hospitalist in a.. 04/01. Sean Lomeli MD Mar 31, 2017 11:53
[2017-04-01] VITALS (7 sets, daily range): BP systolic 110–140; BP diastolic 56–74; PULSE 58–76; RESP 16–20; TEMP 97.4–98.3; O2SAT 96–100
[2017-04-01] MEDS: CHLORHEXIDINE GLUCONATE 2 % 1 PACK (2 CLOTHS) TOP SCH (03:24)
[2017-04-01] MEDS: SODIUM CHLOR 0.9% 1000 ML INJ 1,000 ML IV SCH (06:55)
[2017-04-01 08:46] LABS: AUTOMATED NEUTROPHIL # 3.7 TH/MM3 (1.8-7.7); BASOPHIL # 0.1 TH/MM3 (0-0.2); BASOPHIL % 0.7 % (0.0-2.0); EOSINOPHIL # 0.4 TH/MM3 (0-0.4); EOSINOPHIL % 5.2 % (0.0-4.0); HEMATOCRIT 42.8 % (39.0-51.0); HEMO FLAGS DIFF FINAL; LYMPH % 35.3 % (9.0-44.0); LYMPHOCYTE # 2.6 TH/MM3 (1.0-4.8); MEAN CELL VOLUME 89.5 FL (80.0-100.0); MEAN CORPUSCULAR HEMOGLOBIN 29.8 PG (27.0-34.0); MEAN CORPUSCULAR HGB CONC 33.3 % (32.0-36.0); MONO % 8.3 % (0.0-8.0); NEUT % 50.5 % (16.0-70.0); PLATELET COUNT 246 TH/MM3 (150-450); RED BLOOD COUNT 4.78 MIL/MM3 (4.50-5.90); RED CELL DISTRIBUTION WIDTH 14.2 % (11.6-17.2); WHITE BLOOD COUNT 7.3 TH/MM3 (4.0-11.0)
[2017-04-01 09:16] LABS: ANION GAP 3 MEQ/L (5-15); AST (GOT) 25 U/L (15-37); BLOOD UREA NITROGEN 11 MG/DL (7-18); CHLORIDE 103 MEQ/L (98-107); GLOMERULAR FILTRATION RATE 134 ML/MIN (>89); POTASSIUM 3.7 MEQ/L (3.5-5.1); SODIUM (NA) 136 MEQ/L (136-145)
[2017-04-01 09:17] LABS: ALT (GPT) 31 U/L (12-78)
[2017-04-01 09:19] LABS: ALKALINE PHOSPHATASE 50 U/L (45-117); TOTAL BILIRUBIN ADULT 0.8 MG/DL (0.2-1.0)
[2017-04-01] MEDS: MULTIVITAMIN INJ 10 ML, THIAMINE INJ 100 MG, FOLIC ACID INJ 1 MG in SODIUM CHLORID 0.9%... IV SCH (09:32)
[2017-04-01] MEDS: DOCUSATE SODIUM 50 MG/SENNA 8.6 MG TAB PO SCH (09:32)
[2017-04-01] MEDS: LACTULOSE SYRUP 20 GM/30 ML CUP PO SCH (09:33)
[2017-04-01] MEDS: PANTOPRAZOLE SODIUM 40 MG VIAL IV SCH (09:33)
[2017-04-01] MEDS: SODIUM CHLORIDE 0.9% FLUSH 10 ML FLUSH IV FLUSH SCH (09:43)
--- NOTE | 2017-04-01 10:34 | RADRPT ---
EXAM DATE/TIME: 04/01/2017 08:45 [facility] COMPARISON: CT BRAIN W/O CONTRAST, March 29, 2017, 21:08. CT BRAIN W/O CONTRAST, March 05, 2014, 11:42. INDICATIONS : Altered mental status. Seizures. MEDICAL HISTORY : None. SURGICAL HISTORY : Appendectomy. Cyst removed from testicle. ENCOUNTER: Subsequent ACUITY: 2 day PAIN SCORE: 0/10 LOCATION: head. TECHNIQUE: Multiplanar, multisequence MRI of the brain was performed without contrast. FINDINGS: CEREBRUM: The ventricles are normal for age. No evidence of midline shift, mass lesion, hemorrhage or acute in farction. Hippocampal complexes are symmetric and normal in appearance. No extraaxial fluid collectio ns are seen. A 6.6 mm cyst is identified posteriorly within the pituitary gland. The pituitary gland and suprasellar cistern are otherwise normal in configuration. No solid enhancing lesions were seen. WHITE MATTER: No significant signal abnormalities are seen in the white matter. POSTERIOR FOSSA: The cerebellum and brainstem are intact. The 4th ventricle is midline. The cerebellopontine angle is unremarkable. The cerebellar tonsils are normal in position. DIFFUSION IMAGING: No focal areas of restricted diffusion are seen. No evidence of acute infarction. EXTRACRANIAL: The visualized portions of the orbits and paranasal sinuses are unremarkable. CONCLUSION: 1. 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 Normal appearing brain without evidence of mesial temporal sclerosis, mass or developmental abnorm alities. Florentino Askew MD on April 01, 2017 at 9:56 Board Certified Radiologist. This report was verified electronically.
--- NOTE | 2017-04-01 12:40 | HHI.PR ---
Objective Vitals Vital Signs Date Time Temp Pulse Resp B/P Pulse Ox O2 Delivery O2 Flow Rate FiO2 04/01/17 12:14 98.3 76 20 140/70 99 04/01/17 08:24 98.3 61 20 110/59 98 04/01/17 05:20 99 04/01/17 04:38 97.4 58 16 114/56 96 04/01/17 01:38 98.1 67 16 121/59 99 03/31/17 20:00 97.4 82 20 115/61 100 03/31/17 18:42 98.4 86 20 117/75 100 03/31/17 18:00 84 03/31/17 16:00 98.5 89 135/68 97 03/31/17 16:00 95 03/31/17 16:00 89 03/31/17 14:00 95 03/31/17 03/31/17 04/01/17 15:00 23:00 07:00 Intake Total 1400 ml Output Total 1200 ml Balance 200 ml Intake Oral 530 ml IV Total 870 ml Output Urine Total 1200 ml # Bowel Movements 0 Result Diagram: 04/01/17 0828 04/01/17 0802 Darwin Marin MD Apr 01, 2017 12:40
[2017-04-01 14:30] LABS: FREE T4 1.59 NG/DL (0.76-1.46)
--- NOTE | 2017-04-01 22:06 | HHI.PR ---
Subjective Remarks pt oriented. ambulating no tremors. Objective Vitals pleasant and cooperative heart reg lung cta abd /snt ext no edema Vital Signs Date Time Temp Pulse Resp B/P Pulse Ox O2 Delivery O2 Flow Rate FiO2 04/01/17 16:31 98.2 65 20 123/70 100 04/01/17 12:14 98.3 76 20 140/70 99 04/01/17 08:24 98.3 61 20 110/59 98 04/01/17 05:20 99 04/01/17 04:38 97.4 58 16 114/56 96 04/01/17 01:38 98.1 67 16 121/59 99 03/31/17 03/31/17 04/01/17 15:00 23:00 07:00 Intake Total 1400 ml Output Total 1200 ml Balance 200 ml Intake Oral 530 ml IV Total 870 ml Output Urine Total 1200 ml # Bowel Movements 0 Result Diagram: 04/01/17 0828 04/01/17 0802 A/P Problem List: (1) Acute delirium Status: Acute Plan: Pt presented with acute delirium and psychosis. It is unclear the etiology of his sx's. He was having alot of tachycardia and tremor now he has stablized and seems back to nml unclear if he had a drug reaction from recent hospitalization He has thc in system and synthetic drugs being r/o metabolic wup in process. will f/u all pending labs ordered by ICU. pt will have family bring bottles of recently prescribed meds. MRI brain pending Darwin Marin MD Apr 01, 2017 22:06
[2017-04-02] VITALS: BP 132/68; PULSE 73; RESP 18; TEMP 98.6; O2SAT 100
[2017-04-02 04:20] VITALS: BP 123/57; PULSE 57; RESP 18; TEMP 97.8; O2SAT 100
--- NOTE | 2017-04-02 10:13 | HHI.PR ---
Subjective Remarks Pt ambulating. had bm no tremor. oriented and eager for d/c home. Objective Vitals nad no goiter neck supple heart reg lung cta abd s/nt ext no edema no tremor Vital Signs Date Time Temp Pulse Resp B/P Pulse Ox O2 Delivery O2 Flow Rate FiO2 04/02/17 04:20 97.8 57 18 123/57 100 04/02/17 00:00 98.6 73 18 132/68 100 04/01/17 20:00 98.0 74 20 118/74 100 04/01/17 16:31 98.2 65 20 123/70 100 04/01/17 12:14 98.3 76 20 140/70 99 04/01/17 04/01/17 04/02/17 15:00 23:00 07:00 Intake Total 480 ml Balance 480 ml Intake Oral 480 ml # Voids 5 # Bowel Movements 3 Result Diagram: 04/01/1782704/01/17 0802 A/P Problem List: (1) Acute delirium Status: Acute Plan: Pt presented with acute delirium and psychosis. It is unclear the etiology of his sx's. He was having alot of tachycardia and tremor now he has stablized and seems back to nml unclear if he had a drug reaction from recent hospitalization He has thc in system and synthetic drugs being r/o metabolic wup in process. will f/u all pending labs ordered by ICU. pt will have family bring bottles of recently prescribed meds. MRI brain ..radiologist notes benign appearing 6.6mm pituitary cyst discussed with pt and Mom. He feels back to nml and would like to go home. He can f/u with neuro and his new assigned pcp pending test include the tox screen and adrenal studies. I would probably recheck the TFT's also Darwin Marin MD Apr 02, 2017 10:13
--- NOTE | 2017-04-02 10:15 | HHI.DCPOC ---
Discharge Care Plan Diagnosis: (1) Acute delirium Goals to Promote Your Health * To prevent worsening of your condition and complications * To maintain your health at the optimal level Directions to Meet Your Goals Take your medications as prescribed Follow your dietary instruction Follow activity as directed Keep your appointments as scheduled Take your immunizations and boosters as scheduled If your symptoms worsen call your PCP, if no PCP go to Urgent Care Center or Emergency Room Smoking is Dangerous to Your Health. Avoid second hand smoke Call the 24-hour hour crisis hotline for domestic abuse at Darwin Marin MD Apr 02, 2017 10:15
[2017-04-02 12:46] LABS: BATH SALTS (MDPV) UR NEG (NEG); HEROIN (6-ACETYLMORPHINE) UR NEG (NEG); K2 SPICE UR NEG (NEG)
[2017-04-02 12:47] LABS: METHADONE UR NEG (NEG)
--- NOTE | 2017-04-03 12:58 | HHI.DS ---
Discharge Summary Admission Date Mar 29, 2017 at 19:20 Discharge Date: Apr 02, 2017 Admitting Diagnosis seizure-like activity, altered mental status (1) Acute delirium Diagnosis: Principal Brief History Mr. Ball is a 21 y/o AAM without significant PMH. Pts mother is present at the bedside and provides the history. Pt was recently admitted to [facility] from -03/23/17 with nausea/vomiting and abdominal pain which had started just prior to going to the ED. At that time there were no concerning neurological symptoms. There were no reported fevers at that time. Pts mother reports that they checked his gallbladder but this was not found to be the issue. She states that the N/V and abd pain resolved but there was no specific diagnosis given. Pts mother reports that he was previously hospitalized 1 year ago for an appendectomy and at that time he was given Morphine, Tramadol and Zofran in the hospital and was sent home on Zofran and Tramadol and his mother reports that she felt had a reaction to Tramadol where he became confused with associated twitching that resolved with stopping the tramadol.. Pts mother reports that she noted during his most recent hospitalization that he had started having some twitching and agitation. After that discharge she noted that the symptoms seemed to be more pronounced and worsening. He has had twitching of the upper and lower extremities and confusion and hallucinating. She states that he has not been sleeping for the last 2 days. Pt went back to [facility] on 03/28/17 in the ED and was diagnosed with sinus infection and given a z pack. He took one dose of the Azithromycin this morning. His mother became concerned about the changes in his mentation, agitation and twitching and brought him to the ED at [facility] today. Pts mother states that the patient has been under a lot of stress lately. He does not have any history of psychiatric illness. No hx of seizure disorder. He has hx of marijuana use but no other illicit drug use as far as his mother is aware. During the examination the patient became increasingly agitated and uncooperative. He started hyperventilating and trying to get up off of the stretcher. Pt was given 2mg of Ativan in the ED but was still very agitated and seemed to be paranoid and hallucinating. He was very uncooperative with examination. CBC/BMP: 04/01/17 0828 04/01/17 0802 Significant Findings Laboratory Tests Test 04/01/17 04/01/17 08:02 08:28 Anion Gap 3 MEQ/L (5-15) Free Thyroxine 1.59 NG/DL (0.76-1.46) Monocytes (%) (Auto) 8.3 % (0.0-8.0) Eosinophils (%) (Auto) 5.2 % (0.0-4.0) Ammonia 36 MCMOL/L (11-32) Hospital Course (1) Acute delirium Pt presented with acute delirium and psychosis. It is unclear the etiology of his sx's. He was having alot of tachycardia and tremor He was unstable and placed initially in ICU and on a gtt of Precedex to calm him down. He was seen by neurology who felt he had a metabolic encephalopathy. EEG was neg for sz. No recommendation for LP and pt really never appeared infectious. Now he has stabilized and seems back to nml unclear if he had a drug reaction from recent hospitalization He has thc in system and synthetic drugs being r/o but unlikely. metabolic wup in process. will f/u all pending labs ordered by ICU. MRI brain ..radiologist notes benign appearing 6.6mm pituitary cyst discussed with pt and Mom. He feels back to nml and would like to go home. He can f/u with neuro and his new assigned pcp pending test include the tox screen and adrenal studies including serum catecholamines which are likely to be nml I would probably recheck the TFT's also upon f/u as the free t4 was elevated with low tsh initially that returned to nml. No goiter on exam. Pt Condition on Discharge: Stable Discharge Disposition: Discharge Home Discharge Instructions DIET: Follow Instructions for: As Tolerated, No Restrictions Activities you can perform: Regular-No Restrictions Follow up Referrals: Neurology - 10 Days with Robe Carmona MD PCP Follow-up - 10 Days with Cade Mccall Discontinued Medications: Azithromycin (Zithromax Z-Mustapha) 250 Mg Dspk 250 MG PO DIRECTED 500 MG (2 tabs) day 1, then 1 tab days 2-5. Infection #1 Ref 0 DSPK Darwin Marin MD Apr 03, 2017 12:58
== END 2017-04-02 11:22 | disposition home or self-care (01) | DRG 72 ==
LOC: NEPE 11:45 → UNDOADMOB 15:46 → NEDA 15:46 → HIME 21:25 → N05B 03-31 18:08 → N05A 03-31 18:36
PROVIDERS: ADMIT Internal Medicine Critical Care Medicine; ATTEND Internal Medicine Critical Care Medicine
DX: G93.41 Metabolic encephalopathy (principal); E23.6 Other disorders of pituitary gland; F12.90 Cannabis use, unspecified, uncomplicated; Z72.0 Tobacco use
CPT/HCPCS: 70450; 70551; 80053; 80307; 80358; 81001; 82088; 82140; 82150; 82533; 82550; 82552; 83605; 83690; 83735; 83835; 84100; 84439; 84443; 84481; 85025; 85610; 85652; 85730; 86140; 86592; 87641; 93005; 95819; C9113; G0480; J0834; J1200; J1630; J2060; J3411; J7030; J7040

== ENCOUNTER 2017-07-19 09:59 | Emergency (ER) | payer OTHER ==
[~2017-07-19] VITALS: Ht 185.4 cm; Wt 80.0 kg
[2017-07-19 10:01] VITALS: BP 139/67; PULSE 56; RESP 16; TEMP 98.6; O2SAT 99
[2017-07-19] MEDS ORDERED: SODIUM CHLOR 0.9% 1000 ML INJ 1,000 ML IV SCH (10:24)
--- NOTE | 2017-07-19 10:28 | PD ---
HPI Chief Complaint: GI Complaint Time Seen by Provider: 10:10 Travel History International Travel<30 days: No Contact w/Intl Traveler<30days: No Traveled to known affect area: No History of Present Illness HPI Said 21-year-old man who presents to the emergency department complaining of abdominal pain. States that 2 days of left-sided lower abdominal pain associated with nausea. States he is worried it may be his gallbladder disease admitted to the hospital before for thyroid problems was found to have gallbladder inflammation. This was at [facility]. He states he's had his appendix out. States he gets intermittent belly pains like this from time to time and is becoming more frequently. Said nausea but no vomiting. He is not really eating much. No change in his bowel movements. States he doesn't urinate as much but denies any other urinary symptoms. History Past Medical History Narrative Medical History of appendectomy Social History Alcohol Use: No Tobacco Use: Yes Allergies-Medications (Allergen,Severity, Reaction): Coded Allergies: morphine (Unverified Allergy, Intermediate, Confusion, 07/19/17) tramadol (Unverified Allergy, Intermediate, Confusion, 07/19/17) ondansetron (Unverified Allergy, Mild, Twitching, 07/19/17) Reported Meds & Prescriptions Reported Meds & Active Scripts Active No Active Prescriptions or Reported Medications Review of Systems Except as stated in HPI: all other systems reviewed are Neg Physical Exam Narrative GENERAL: Young thin 21-year-old man, no acute distress. SKIN: Focused skin assessment warm/dry. HEAD: Atraumatic. Normocephalic. NECK: Trachea midline. No JVD. CARDIOVASCULAR: Regular rate and rhythm. No murmur appreciated. RESPIRATORY: No accessory muscle use. Clear to auscultation. Breath sounds equal bilaterally. GASTROINTESTINAL: Abdomen soft, non-tender, nondistended. Hepatic and splenic margins not palpable. MUSCULOSKELETAL: No obvious deformities. No clubbing. No cyanosis. No edema. NEUROLOGICAL: Awake and alert. No obvious cranial nerve deficits. Motor grossly within normal limits. Normal speech. PSYCHIATRIC: Appropriate mood and affect; insight and judgment normal. Data Data Last Documented VS Vital Signs Date Time Temp Pulse Resp B/P (MAP) Pulse Ox O2 Delivery O2 Flow Rate FiO2 07/19/17 10:01 98.6 56 16 139/67 (91) 99 Room Air Orders Orders Complete Blood Count With Diff (07/19/17 10:24) Comprehensive Metabolic Panel (07/19/17 10:24) Lipase (07/19/17 10:24) Urinalysis - C+S If Indicated (07/19/17 10:24) Iv Access Insert/Monitor (07/19/17 10:24) Sodium Chlor 0.9% 1000 Ml Inj (Ns 1000 M (07/19/17 10:24) Sodium Chloride 0.9% Flush (Ns Flush) (07/19/17 10:30) Labs Laboratory Tests Test 07/19/17 10:15 White Blood Count 7.9 TH/MM3 Red Blood Count 5.07 MIL/MM3 Hemoglobin 15.6 GM/DL Hematocrit 45.2 % Mean Corpuscular Volume 89.1 FL Mean Corpuscular Hemoglobin 30.8 PG Mean Corpuscular Hemoglobin Concent 34.5 % Red Cell Distribution Width 13.6 % Platelet Count 205 TH/MM3 Mean Platelet Volume 8.2 FL Neutrophils (%) (Auto) 60.0 % Lymphocytes (%) (Auto) 30.0 % Monocytes (%) (Auto) 6.8 % Eosinophils (%) (Auto) 2.6 % Basophils (%) (Auto) 0.6 % Neutrophils # (Auto) 4.7 TH/MM3 Lymphocytes # (Auto) 2.4 TH/MM3 Monocytes # (Auto) 0.5 TH/MM3 Eosinophils # (Auto) 0.2 TH/MM3 Basophils # (Auto) 0.0 TH/MM3 CBC Comment DIFF FINAL Differential Comment Urine Color YELLOW Urine Turbidity CLEAR Urine pH 6.0 Urine Specific [place] 1.025 Urine Protein TRACE mg/dL Urine Glucose (UA) NEG mg/dL Urine Ketones NEG mg/dL Urine Occult Blood NEG Urine Nitrite NEG Urine Bilirubin NEG Urine Urobilinogen 2.0 MG/DL Urine Leukocyte Esterase NEG Urine RBC 1 /hpf Urine WBC 2 /hpf Urine Mucus FEW /lpf Microscopic Urinalysis Comment CULT NOT INDICATED Blood Urea Nitrogen 15 MG/DL Creatinine 1.05 MG/DL Random Glucose 77 MG/DL Total Protein 7.7 GM/DL Albumin 4.5 GM/DL Calcium Level 9.2 MG/DL Alkaline Phosphatase 56 U/L Aspartate Amino Transf (AST/SGOT) 13 U/L Alanine Aminotransferase (ALT/SGPT) 23 U/L Total Bilirubin 0.8 MG/DL Sodium Level 138 MEQ/L Potassium Level 3.6 MEQ/L Chloride Level 101 MEQ/L Carbon Dioxide Level 30.5 MEQ/L Anion Gap 7 MEQ/L Estimat Glomerular Filtration Rate 106 ML/MIN Lipase 137 U/L [facility] Medical Decision Making Medical Screen Exam Complete: Yes Emergency Medical Condition: Yes Interpretation(s) LABS: CBC is unremarkable. BMP is unremarkable. Lipase is normal. UA is unremarkable. Differential Diagnosis Colitis, IBS, IBD, renal lithiasis, UTI, other Narrative Course Medical decision-making 20-year-old man, intermittent recurrent abdominal pain, left-sided, benign exam , minimal associated symptoms. Unclear etiology. Does not sound like his gallbladder given the location of the pain. We'll check screening labs, likely discharge for outpatient follow-up. Diagnosis Primary Impression: Abdominal pain Additional Instructions: Use Bentyl as needed for abdominal pain. Follow up with her primary doctor in 2-3 days if you're not completely well. Return to the emergency department for any new or worsening symptoms. Med/Other Pt SpecificInfo: Prescription(s) given Scripts Dicyclomine (Bentyl) 10 Mg Cap 10 MG PO TID Y for Bowel Management, #15 CAP 0 Refills Prov: Clayton Moore MD 07/19/17 Disposition: 01 DISCHARGE HOME Condition: Stable Clayton Moore MD Jul 19, 2017 10:28
[2017-07-19] MEDS ORDERED: SODIUM CHLORIDE 0.9% FLUSH 10 ML FLUSH IV FLUSH PRN (10:30)
[2017-07-19 10:48] LABS: AUTOMATED NEUTROPHIL # 4.7 TH/MM3 (1.8-7.7); BASOPHIL % 0.6 % (0.0-2.0); EOSINOPHIL # 0.2 TH/MM3 (0-0.4); EOSINOPHIL % 2.6 % (0.0-4.0); HEMATOCRIT 45.2 % (39.0-51.0); HEMO FLAGS DIFF FINAL; LYMPHOCYTE # 2.4 TH/MM3 (1.0-4.8); MEAN CELL VOLUME 89.1 FL (80.0-100.0); MEAN CORPUSCULAR HEMOGLOBIN 30.8 PG (27.0-34.0); MEAN CORPUSCULAR HGB CONC 34.5 % (32.0-36.0); MONO % 6.8 % (0.0-8.0); PLATELET COUNT 205 TH/MM3 (150-450); RED BLOOD COUNT 5.07 MIL/MM3 (4.50-5.90); RED CELL DISTRIBUTION WIDTH 13.6 % (11.6-17.2); WHITE BLOOD COUNT 7.9 TH/MM3 (4.0-11.0)
[2017-07-19 10:56] LABS: BLOOD, URINE NEG (NEG); COMMENT (UR) CULT NOT INDICATED; CULTURE IF INDICATED CULT NOT INDICATED; GLUCOSE,URINE NEG (NEG); KETONE, URINE NEG (NEG); MUCUS URINE FEW /lpf (OCC); NITRITE,URINE NEG (NEG); URINE COLOR YELLOW (YELLW/STRAW)
[2017-07-19 11:11] LABS: ALT (GPT) 23 U/L (12-78); ANION GAP 7 MEQ/L (5-15); AST (GOT) 13 U/L (15-37); BICARBONATE 30.5 MEQ/L (21.0-32.0); BLOOD UREA NITROGEN 15 MG/DL (7-18); CHLORIDE 101 MEQ/L (98-107); GLOMERULAR FILTRATION RATE 106 ML/MIN (>89); POTASSIUM 3.6 MEQ/L (3.5-5.1); SODIUM (NA) 138 MEQ/L (136-145)
[2017-07-19 11:14] LABS: ALKALINE PHOSPHATASE 56 U/L (45-117); TOTAL BILIRUBIN ADULT 0.8 MG/DL (0.2-1.0)
[2017-07-19] MEDS ORDERED: DICY10 PO (11:52)
== END 2017-07-19 12:14 | disposition home or self-care (01) ==
LOC: NEPD 09:59
DX: R10.32 Left lower quadrant pain (principal); R11.0 Nausea
CPT/HCPCS: 80053; 81001; 83690; 85025; 96360; 99284; J7030

== ENCOUNTER 2017-09-22 07:04 | Emergency (ER) | payer OTHER ==
[~2017-09-22] VITALS: Ht 185.4 cm; Wt 81.5 kg
[~2017-09-22 07:04] MED LIST: DICY10 PO
[2017-09-22 07:06] VITALS: BP 124/65; PULSE 89; RESP 14; TEMP 98.1; O2SAT 98
--- NOTE | 2017-09-22 08:00 | PD ---
HPI Chief Complaint: Cold / Flu Symptoms Time Seen by Provider: 07:50 Travel History International Travel<30 days: No Contact w/Intl Traveler<30days: No Traveled to known affect area: No History of Present Illness HPI 22-year-old male states yesterday morning he developed chills, cough, congestion and general ill feeling with body aches. He states that his belly was bothering him earlier but he thinks it was could see was hungry as it was only for a little bit and now it is gone. He denies any other specific complaints at this time. He states he took Mucinex and [place] prior to coming in. He states he was here at midnight but left before being seen. Quality is nonproductive. Severity is frequent cough per patient. He feels worse when he moves around. He denies other modifying factors. PFSH Past Medical History Asthma: No Autoimmune Disease: No Cancer: No Cardiovascular Problems: No Chemotherapy: No Cerebrovascular Accident: No Diabetes: No Endocrine: No GERD: No Glaucoma: No Genitourinary: No Hepatitis: No Hiatal Hernia: No Hypertension: No Immune Disorder: No Kidney Stones: No Musculoskeletal: No Neurologic: No Psychiatric: No Reproductive: No Respiratory: No Myocardial Infarction: No Radiation Therapy: No Renal Failure: No Sickle Cell Disease: No Thyroid Disease: Yes (upon this admission) Ulcer: No Past Surgical History Abdominal Surgery: Yes (Appendicitis ) AICD: No Appendectomy: Yes Arteriovenous Shunt: No Cardiac Surgery: No Ear Surgery: No Endocrine Surgery: No Eye Surgery: No Genitourinary Surgery: No Gynecologic Surgery: No Insulin Pump: No Joint Replacement: No Oral Surgery: No Pacemaker: No Thoracic Surgery: No Other Surgery: Yes Social History Alcohol Use: Yes Tobacco Use: Yes Substance Use: No Allergies-Medications (Allergen,Severity, Reaction): Coded Allergies: morphine (Unverified Allergy, Intermediate, Confusion, 07/19/17) tramadol (Unverified Allergy, Intermediate, Confusion, 07/19/17) ondansetron (Unverified Allergy, Mild, Twitching, 07/19/17) Reported Meds & Prescriptions Reported Meds & Active Scripts Active Bentyl (Dicyclomine HCl) 10 Mg Cap 10 Mg PO TID PRN Review of Systems Except as stated in HPI: all other systems reviewed are Neg Physical Exam Narrative GENERAL: Well-nourished, well-developed patient. Well-appearing SKIN: Warm and dry. HEAD: Normocephalic and atraumatic. EYES: No injection or drainage. ENT: No nasal drainage noted. Bilateral TMs clear, posterior oropharynx without exudate or erythema NECK: Supple, trachea midline. No meningeal signs CARDIOVASCULAR: Regular rate and rhythm RESPIRATORY: Breath sounds equal bilaterally. No accessory muscle use. GASTROINTESTINAL: Abdomen soft, non-tender, nondistended. EXTREMITIES: No edema. NEUROLOGICAL: Awake and alert. Motor and sensory grossly within normal limits. Normal speech. Data Data Last Documented VS Vital Signs Date Time Temp Pulse Resp B/P (MAP) Pulse Ox O2 Delivery O2 Flow Rate FiO2 09/22/17 07:49 Room Air 09/22/17 07:06 98.1 89 14 124/65 (84) 98 Orders Orders Influenzae A/B Antigen (09/22/17 07:53) Chest, Pa & Lat (09/22/17 ) Ed Discharge Order (09/22/17 09:56) MDM Medical Decision Making Medical Screen Exam Complete: Yes Emergency Medical Condition: Yes Medical Record Reviewed: Yes (past history confirmed) Interpretation(s) Last 24 hours Impressions Chest X-Ray 09/22/17 0000 Signed Impressions: Service Date/Time: September 08:12 - CONCLUSION: No evidence of acute cardiopulmonary disease. Jovan Amato MD Differential Diagnosis Upper respiratory infection, pneumonia, influenza Narrative Course Will check influenza and chest x-ray. Patient is one day into symptoms but has no chronic medical problems and is 22 years old. Chest x-ray is normal. Influenza is positive. Advised patient of side effect profile with Tamiflu and costs. He states he does not want to start unless he gets worse. I informed him he has to start it within 48 hours ideally. He states he wants a prescription in case he changes his mind which I will provide him with. patient denies any new complaints, all questions answered. Patient knows that follow up is incumbent on them and to return to the emergency room immediately if new or worsening symptoms develop. Patient given strict return precautions, vitals reviewed and are normal, agrees to further workup as an outpatient. Diagnosis Primary Impression: Influenza A Patient Instructions: General Instructions Additional Instructions: return as needed, follow with primary tuesday, alternate tylenol and motrin as needed Med/Other Pt SpecificInfo: Prescription(s) given Scripts Oseltamivir (Tamiflu) 75 Mg Cap 75 MG PO BID for Mgmt Viral Infection for 5 Days, #10 CAP 0 Refills Prov: Kayy Hinson MD 09/22/17 Disposition: 01 DISCHARGE HOME Condition: Stable Kayy Hinson MD Sep 22, 2017 08:00
--- NOTE | 2017-09-22 08:20 | RADRPT ---
EXAM DATE/TIME: 09/22/2017 08:12 [facility] COMPARISON: No previous studies available for comparison. INDICATIONS : Cough. MEDICAL HISTORY : None. SURGICAL HISTORY : Appendectomy. Testicular cyst removed. ENCOUNTER: Subsequent ACUITY: 2 days PAIN SCORE: 0/10 LOCATION: Bilateral chest FINDINGS: PA and lateral views of the chest demonstrate the lungs to be symmetrically aerated without evidence of mass, infiltrate or effusion. The cardiomediastinal contours are unremarkable. Osseous structure s are intact. CONCLUSION: No evidence of acute cardiopulmonary disease. Jovan Amato MD on September 22, 2017 at 8:17 Board Certified Radiologist. This report was verified electronically.
[2017-09-22] MEDS ORDERED: OSEL75 PO (09:59)
[2017-09-22 10:01] VITALS: BP 132/71
== END 2017-09-22 10:03 | disposition home or self-care (01) ==
LOC: NEPE 07:04
DX: J10.1 Influenza due to other identified influenza virus with other respiratory manifestations (principal); E07.9 Disorder of thyroid, unspecified; Z72.0 Tobacco use
CPT/HCPCS: 71046; 87804; 99284

== ENCOUNTER 2017-12-10 12:52 | Emergency (ER) | payer SELFPAY ==
[~2017-12-10] VITALS: Ht 185.4 cm; Wt 74.0 kg
[~2017-12-10 12:52] MED LIST changes: +OSEL75 PO
[2017-12-10 13:04] VITALS: BP 149/100; PULSE 106; RESP 15; TEMP 98.5; O2SAT 99
[2017-12-10] MEDS ORDERED: SODIUM CHLOR 0.9% 1000 ML INJ 1,000 ML IV ONE (14:45)
[2017-12-10 15:05] LABS: AUTOMATED NEUTROPHIL # 7.4 TH/MM3 (1.8-7.7); BASOPHIL % 0.4 % (0.0-2.0); EOSINOPHIL # 0.1 TH/MM3 (0-0.4); HEMATOCRIT 43.7 % (39.0-51.0); HEMOGLOBIN 14.7 GM/DL (13.0-17.0); LYMPH % 17.3 % (9.0-44.0); LYMPHOCYTE # 1.7 TH/MM3 (1.0-4.8); MEAN CELL VOLUME 89.1 FL (80.0-100.0); MEAN CORPUSCULAR HEMOGLOBIN 29.9 PG (27.0-34.0); MEAN CORPUSCULAR HGB CONC 33.6 % (32.0-36.0); MEAN PLATELET VOLUME 8.3 FL (7.0-11.0); MONO % 7.5 % (0.0-8.0); MONOCYTE # 0.8 TH/MM3 (0-0.9); NEUT % 73.8 % (16.0-70.0); PLATELET COUNT 195 TH/MM3 (150-450); RED CELL DISTRIBUTION WIDTH 14.6 % (11.6-17.2)
[2017-12-10 15:21] LABS: ALBUMIN 4.5 GM/DL (3.4-5.0); ALT (GPT) 22 U/L (12-78); AST (GOT) 14 U/L (15-37); BICARBONATE 25.6 MEQ/L (21.0-32.0); BLOOD UREA NITROGEN 13 MG/DL (7-18); CALCIUM 8.9 MG/DL (8.5-10.1); CHLORIDE 106 MEQ/L (98-107); CREATININE 1.07 MG/DL (0.60-1.30); GLOMERULAR FILTRATION RATE 103 ML/MIN (>89); GLUCOSE,RANDOM 91 MG/DL (74-106); SODIUM (NA) 141 MEQ/L (136-145)
[2017-12-10 15:31] LABS: ALKALINE PHOSPHATASE 53 U/L (45-117); TOTAL BILIRUBIN ADULT 0.5 MG/DL (0.2-1.0); TOTAL PROTEIN 7.7 GM/DL (6.4-8.2)
--- NOTE | 2017-12-10 15:48 | RADRPT ---
EXAM DATE/TIME: 12/10/2017 15:22 [facility] COMPARISON: CT BRAIN W/O CONTRAST, March 29, 2017, 21:08. INDICATIONS : Dizziness. RADIATION DOSE: 36.91 CTDIvol (mGy) MEDICAL HISTORY : None SURGICAL HISTORY : Appendectomy. ENCOUNTER: Initial ACUITY: 1 day PAIN SCALE: 0/10 LOCATION: cranial TECHNIQUE: Multiple contiguous axial images were obtained of the head. Using automated exposure control and adj ustment of the mA and/or kV according to patient size, radiation dose was kept as low as reasonably a chievable to obtain optimal diagnostic quality images. DICOM format image data is available electro nically for review and comparison. FINDINGS: CEREBRUM: The ventricles are normal for age. No evidence of midline shift, mass lesion, hemorrhage or acute in farction. No extra-axial fluid collections are seen. POSTERIOR FOSSA: The cerebellum and brainstem are intact. The 4th ventricle is midline. The cerebellopontine angle i s unremarkable. EXTRACRANIAL: The visualized portion of the orbits is intact. SKULL: The calvaria is intact. No evidence of skull fracture. CONCLUSION: Negative exam. Felipe Clifford MD on December 10, 2017 at 15:45 Board Certified Radiologist. This report was verified electronically.
[2017-12-10] MEDS ORDERED: LORazepam 2 MG/ML VIAL IV PUSH ONE ×2 (16:30→16:45)
--- NOTE | 2017-12-10 17:07 | PD ---
HPI Chief Complaint: Abdominal Pain Time Seen by Provider: 14:26 Travel History International Travel<30 days: No Contact w/Intl Traveler<30days: No Traveled to known affect area: No History of Present Illness HPI Patient is a 22-year-old male who comes in with his mom due to symptoms of sleeplessness and agitation. Mom says he was here in the past for this and they told her it was because he had a pituitary cyst. He has not been able to follow-up regarding this. She says he also has history of hyperthyroidism. Patient does report feeling like he is not himself. He says he has some abdominal pain. He denies chest pain or shortness of breath. Denies fever chills. Denies any headaches. Mom says she does not think he has slept since . Severity is mild to moderate. PFSH Past Medical History Asthma: No Autoimmune Disease: No Cancer: No Cardiovascular Problems: No Chemotherapy: No Cerebrovascular Accident: No Diabetes: No Endocrine: No Gastrointestinal Disorders: No GERD: No Glaucoma: No Genitourinary: No Hepatitis: No Hiatal Hernia: No Heparin Induced Thrombocytopen: No Hypertension: No Immune Disorder: No Implanted Vascular Access Dvce: No Kidney Stones: No Medical other: No Musculoskeletal: No Neurologic: No Psychiatric: No Reproductive: No Respiratory: No Myocardial Infarction: No Radiation Therapy: No Renal Failure: No Sickle Cell Disease: No Thyroid Disease: Yes (upon this admission) Ulcer: No Past Surgical History Abdominal Surgery: Yes (Appendicitis ) AICD: No Appendectomy: Yes Arteriovenous Shunt: No Cardiac Surgery: No Ear Surgery: No Endocrine Surgery: No Eye Surgery: No Genitourinary Surgery: No Gynecologic Surgery: No Insulin Pump: No Joint Replacement: No Neurologic Surgery: No Oral Surgery: No Pacemaker: No Thoracic Surgery: No Other Surgery: Yes Social History Alcohol Use: Yes Tobacco Use: Yes Substance Use: No Allergies-Medications (Allergen,Severity, Reaction): Coded Allergies: morphine (Unverified Allergy, Intermediate, Confusion, 12/10/17) tramadol (Unverified Allergy, Intermediate, Confusion, 12/10/17) ondansetron (Unverified Allergy, Mild, Twitching, 12/10/17) Reported Meds & Prescriptions Reported Meds & Active Scripts Active Tamiflu (Oseltamivir Phosphate) 75 Mg Cap 75 Mg PO BID 5 Days Bentyl (Dicyclomine HCl) 10 Mg Cap 10 Mg PO TID PRN Review of Systems Except as stated in HPI: all other systems reviewed are Neg General / Constitutional: No: Fever, Chills Eyes: No: Blurred Vision HENT: No: Headaches, Lightheadedness Cardiovascular: No: Chest Pain or Discomfort Respiratory: No: Shortness of Breath Gastrointestinal: Positive: Abdominal Pain Musculoskeletal: No: Myalgias Skin: No Rash Neurologic: Positive: Change in Mentation, No: Weakness, Dizziness Physical Exam Narrative GENERAL: Awake and alert, no acute distress. SKIN: Focused skin assessment warm/dry. No wounds or signs of infection. HEAD: Atraumatic. Normocephalic. EYES: Pupils equal and round and reactive. No scleral icterus. Extraocular movements intact. ENT: Mucous membranes pink and moist. NECK: Trachea midline. No JVD. CARDIOVASCULAR: Regular rate and rhythm. No murmur appreciated. RESPIRATORY: No accessory muscle use. Clear to auscultation. Breath sounds equal bilaterally. GASTROINTESTINAL: Abdomen soft, non-tender, nondistended. MUSCULOSKELETAL: No obvious deformities. No clubbing. No cyanosis. No edema. NEUROLOGICAL: Awake and alert. No obvious cranial nerve deficits. Motor grossly within normal limits. Normal speech. PSYCHIATRIC: Appropriate mood and affect; insight and judgment normal. Data Data Last Documented VS Vital Signs Date Time Temp Pulse Resp B/P (MAP) Pulse Ox O2 Delivery O2 Flow Rate FiO2 12/10/17 16:26 18 12/10/17 13:04 98.5 106 149/100 (116) 99 Orders Orders Iv Access Insert/Monitor (12/10/17 14:37) Complete Blood Count With Diff (12/10/17 14:37) Comprehensive Metabolic Panel (12/10/17 14:37) Thyroid Stimulating Hormone (12/10/17 14:37) Ct Brain W/O Iv Contrast(Rout) (12/10/17 ) Sodium Chlor 0.9% 1000 Ml Inj (Ns 1000 M (12/10/17 14:45) Drug Screen, Random Urine (12/10/17 14:40) Psych Screen (12/10/17 16:16) Lorazepam Inj (Ativan Inj) (12/10/17 16:30) Lorazepam Inj (Ativan Inj) (12/10/17 16:45) Labs Laboratory Tests Test 12/10/17 14:15 White Blood Count 10.0 TH/MM3 Red Blood Count 4.90 MIL/MM3 Hemoglobin 14.7 GM/DL Hematocrit 43.7 % Mean Corpuscular Volume 89.1 FL Mean Corpuscular Hemoglobin 29.9 PG Mean Corpuscular Hemoglobin Concent 33.6 % Red Cell Distribution Width 14.6 % Platelet Count 195 TH/MM3 Mean Platelet Volume 8.3 FL Neutrophils (%) (Auto) 73.8 % Lymphocytes (%) (Auto) 17.3 % Monocytes (%) (Auto) 7.5 % Eosinophils (%) (Auto) 1.0 % Basophils (%) (Auto) 0.4 % Neutrophils # (Auto) 7.4 TH/MM3 Lymphocytes # (Auto) 1.7 TH/MM3 Monocytes # (Auto) 0.8 TH/MM3 Eosinophils # (Auto) 0.1 TH/MM3 Basophils # (Auto) 0.0 TH/MM3 CBC Comment DIFF FINAL Differential Comment Blood Urea Nitrogen 13 MG/DL Creatinine 1.07 MG/DL Random Glucose 91 MG/DL Total Protein 7.7 GM/DL Albumin 4.5 GM/DL Calcium Level 8.9 MG/DL Alkaline Phosphatase 53 U/L Aspartate Amino Transf (AST/SGOT) 14 U/L Alanine Aminotransferase (ALT/SGPT) 22 U/L Total Bilirubin 0.5 MG/DL Sodium Level 141 MEQ/L Potassium Level 3.5 MEQ/L Chloride Level 106 MEQ/L Carbon Dioxide Level 25.6 MEQ/L Anion Gap 9 MEQ/L Estimat Glomerular Filtration Rate 103 ML/MIN Thyroid Stimulating Hormone 3rd Gen 0.531 uIU/ML Urine Opiates Screen NEG Urine Barbiturates Screen NEG Urine Amphetamines Screen NEG Urine Benzodiazepines Screen POS Urine Cocaine Screen NEG Urine Cannabinoids Screen POS MDM Medical Decision Making Medical Screen Exam Complete: Yes Emergency Medical Condition: Yes Medical Record Reviewed: Yes Differential Diagnosis Psychosis versus intoxication versus electrolyte abnormality Narrative Course Patient is a 22-year-old male who comes in due to sleeplessness and agitation. Exam shows no acute abnormalities. Patient is awake, alert, oriented, he is able to provide a history. He does occasionally say things that do not make sense. He does admit to using Xanax and marijuana. Labs show no acute abnormalities. CT head shows no acute abnormalities. Last [address] 12/10/17 0000 Signed Impressions: Service Date/Time: Sunday, December 10, 2017 15:22 - CONCLUSION: Negative exam. Felipe Clifford MD Per previous notes, the pituitary cyst is benign and not thought to cause any of his symptoms. There was no definitive diagnosis made on his prior admission and he was advised to follow-up with neurology, which she has not done yet. I discussed with mom my concern that this may be a psychiatric illness. I offered to have him seen by psychiatry. She does not want to wait and would rather have him follow-up with the primary doctor. Currently he is not a threat to himself or others. Mom advised return anytime due to any further concerns. Diagnosis Primary Impression: Agitation Patient Instructions: Altered Mental Status (ED), General Instructions Additional Instructions: Follow-up with your doctors. Return anytime for any worsening symptoms or concerns. Disposition: 01 DISCHARGE HOME Condition: Stable Nita Esparza MD Dec 10, 2017 17:07
== END 2017-12-10 17:18 | disposition home or self-care (01) ==
LOC: NEPD 12:52
DX: R45.1 Restlessness and agitation (principal); R10.9 Unspecified abdominal pain; F12.90 Cannabis use, unspecified, uncomplicated; F19.90 Other psychoactive substance use, unspecified, uncomplicated; Z72.0 Tobacco use; Z88.5 Allergy status to narcotic agent
CPT/HCPCS: 70450; 80053; 80307; 84443; 85025; 96361; 96374; 99284; J2060; J7030